=== PATIENT | female | born 1960 | race Caucasian/White ===

== ENCOUNTER → 2021-04-05 10:43 | Outpatient (CLI) | payer OTHER, SELFPAY ==
--- NOTE | ~2021-04-05 | MM_ITS ---
EXAMINATION: MM screening christiana BI w luis HISTORY: Screening TECHNIQUE: Craniocaudal and mediolateral oblique 3-D tomosynthesis images were obtained and synthetic 2-D images were generated. CAD analysis was submitted and interpreted. COMPARISON: Comparison to multiple prior studies sequentially, with oldest reviewed study dated 12/22. BREAST PARENCHYMAL COMPOSITION: The breasts are almost entirely fatty. FINDINGS: There is no evidence of suspicious mass, calcification, or architectural distortion to sugg est malignancy in either breast. There has been no suspicious interval change. IMPRESSION: 1. No mammographic evidence of malignancy. 2. Recommend routine screening mammography in one year. BI-RADS Category 1: Negative Reviewed, dictated and finalized at location A. TION ANALYST
== END ==
PROVIDERS: PCP Internal Medicine; Visit Provider Nurse Practitioner Obstetrics & Gynecology
DX: Z12.31 Encounter for screening mammogram for malignant neoplasm of breast (principal)
CPT/HCPCS: 77063; 77067

== ENCOUNTER → 2021-04-20 07:36 | Outpatient (CLI) | payer OTHER, SELFPAY ==
--- NOTE | ~2021-04-20 | US_ITS ---
EXAMINATION: US abdomen complete EXAM DATE: 04/20/2021 08:28 INDICATION: R10.9 - Unspecified abdominal pain . TECHNIQUE: Multiple grayscale and Doppler images of the complete abdomen were obtained (by a technolo gist who performed the scan) and subsequently reviewed. There is no prior study for comparison. FINDINGS: The abdominal aorta is normal in caliber. Visualized portion IVC is patent. The pancreatic head a nd body are normal in appearance. The pancreatic tail is not visualized. The liver has normal echogenicity and contour. There are no focal liver lesions identified. There is no evidence of intrahepatic biliary duct dilation. Portal venous flow was seen in the hepatopedal , normal direction and has normal Doppler waveform. Common bile duct measures 4 mm, which is normal. The gallbladder fossa is unremarkable. Right kidney: There is renal cortical thinning, normal contour and echogenicity. It measures 11.3 x 4.6 x 6.5 centimeters. There is cystic region superior pole with increased through transmission prob ably a cyst measuring up to 2.6 cm. There is no hydronephrosis. Left kidney: There is normal contour and echogenicity. It measures 11.2 x 4.5 x 4.8 centimeters. T here are no focal renal lesions identified. There is no hydronephrosis. The spleen measures 8.4 centimeters and is morphologically normal. IMPRESSION: 1. No acute abdominal findings. Reviewed, dictated and finalized at location A. CAL ASSISTANT FLOAT
== END ==
PROVIDERS: PCP Internal Medicine; Visit Provider Nurse Practitioner
DX: R10.9 Unspecified abdominal pain (principal)
CPT/HCPCS: 76700

== ENCOUNTER 2021-04-24 13:54 | Outpatient (CLI) | payer OTHER, SELFPAY ==
--- NOTE | ~2021-04-24 | CT_ITS ---
EXAMINATION: CT abdomen pelvis w con DATE: 04/24/2021 14:48 INDICATION: Unspecified abdominal pain TECHNIQUE: Computed tomography (CT) of the abdomen and pelvis was performed with 100 cc Omnipaque 350 intravenous contrast. Automated exposure control and iterative reconstruction technique were employe d. Exam dose: 581.72 mGy-cm total exam DLP. COMPARISON: 04/20/2021 complete abdominal ultrasound examination 11/23/2012 CT abdomen pelvis FINDINGS: Calcified right lower lobe pulmonary granuloma and multiple calcified splenic granulomas, c onsistent with old granulomatous disease. The lung bases are clear of infiltrate or consolidation. Normal heart size. No pericardial or pleural effusion. Status post cholecystectomy. No bile duct dilatation. There is some peripheral interrupted contrast enhancement of an approximately 13 mm hypoattenuating p osterior left hepatic lobe lateral segment lesion; the CT characteristics suggest hemangioma. No othe r hepatic space-occupying mass lesion is evident. Normal splenic size. No pancreatic mass lesion, thalia cification or ductal dilatation. Normal morphology of the adrenal glands. There is volume loss and prominent scarring of the right kidney and moderately prominent right hydron ephrosis. There is no right ureteral dilatation or right urinary tract obstruction or calculus. The left kidney is unremarkable. No left urinary tract calculus or hydroureteronephrosis. The urinary bladder appears normal. The uterus and adnexal areas are unremarkable. No bowel obstruction or intraperitoneal free air. Normal caliber of the abdominal aorta. No intraperitoneal or retroperitoneal or pelvic mass lesion or adenopathy or ascites. There is a small umbilical hernia containing fat and a loop of nonobstructed nonstrangulated small noemi wel. Old healed left inferior pubic ramus fracture. There are scattered occasional small osteosclerotic densities of the axial skeleton, some not present on 11/23/2012; consider radionuclide bone scan evaluate for any active process such as osteosclerotic metastases as clinically appropriate. IMPRESSION: Status post cholecystectomy Probable 13 mm left hepatic lobe hemangioma Chronic pyelonephritis of the right kidney Small umbilical hernia containing one nonobstructed nonstrangulated small bowel loop Scattered small osteosclerotic densities of the axial skeleton, some not present on 11/23/2012. Conside r radionuclide bone scan as clinically appropriate Reviewed, dictated and finalized at Location A. Reviewed, dictated and finalized at location B. CARRIER TECHNICIAN IMPRESSION: Status post cholecystectomy Probable 13 mm left hepatic lobe hemangioma Chronic pyelonephritis of the right kidney Small umbilical hernia containing one nonobstructed nonstrangulated small bowel loop Scattered small osteosclerotic densities of the axial skeleton, some not presen t on 11/23/2012. Consider radionuclide bone scan as clinically appropriate
[2021-04-24 14:43] LABS: Estimated Glomerular Filt Rate > 60
== END 2021-04-24 13:55 | disposition home or self-care (01) ==
PROVIDERS: PCP Internal Medicine; Visit Provider Nurse Practitioner
DX: R10.9 Unspecified abdominal pain (principal); Z90.49 Acquired absence of other specified parts of digestive tract; K42.9 Umbilical hernia without obstruction or gangrene
CPT/HCPCS: 74177; Q9967

== ENCOUNTER 2021-05-21 07:08 | Outpatient (CLI) | payer OTHER, SELFPAY ==
--- NOTE | ~2021-05-21 | NM_ITS ---
EXAMINATION: NM bone scan whole body DATE: 05/21/2021 10:50 INDICATION: Osteopetrosis. Sclerotic lesions of bone. TECHNIQUE: 26.8 mCi Tc-99m HDP was administered intravenously. Delayed whole-body scintigrams were o btained. COMPARISON: CT abdomen and pelvis 04/24/2021, 11/23/2012 FINDINGS: There is joint-centered increased activity in the knees, acromioclavicular joints, sternocl avicular joints, and right foot without radiographic comparison, likely osteoarthritis. IMPRESSION: 1. No abnormal activity to correlate with the small sclerotic lesions seen in the pelvis by CT, likel y benign bone islands. Reviewed, dictated and finalized at location A. ESSIONAL VOLLEYBALL PLAYER IMPRESSION: 1. No abnormal activity to correlate with the small sclerotic lesions seen in t he pelvis by CT, likely benign bone islands.
== END 2021-05-21 07:09 | disposition home or self-care (01) ==
LOC: ANHIMG 07:11
PROVIDERS: PCP Internal Medicine; Visit Provider Nurse Practitioner
DX: Q78.2 Osteopetrosis (principal)
CPT/HCPCS: 78306; A9561

== ENCOUNTER 2021-05-23 12:25 | Outpatient (CLI) | payer OTHER, SELFPAY ==
--- NOTE | ~2021-05-23 | NM_ITS ---
EXAMINATION: ARIC lang renal scan DATE: 05/23/2021 14:30 INDICATION: Right hydronephrosis. TECHNIQUE: 8.1 mCi Tc-99m MAG3 was administered IV. 40 mg furosemide was administered IV immediately afterward. The patient was scanned in the supine position. A posterior abdominal radionuclide angiog danny was obtained. A subsequent time course of static images of the kidneys, ureters, and bladder was obtained. COMPARISON: CT abdomen and pelvis 04/24/2021, ultrasound 04/20/21 FINDINGS: The posterior abdominal radionuclide angiogram and sequential static images show normal siz e, position, and morphology of the kidneys. Peak renal parenchymal uptake was 5 min in right kidney a nd 2 min in left kidney (normal peak 3-5 minutes). The relative early renal uptake was 45% on the ri ght and 55% on the left (<40% is abnormal). No abnormalities of the ureters or bladder are seen. T1/2 for clearance of activity from the right kidney and proximal collecting system was 21 minutes. T1/2 for clearance of activity from the left kidney and proximal collecting system was 4 minutes. IMPRESSION: 1. Delayed contrast clearance from right kidney, likely secondary to asymmetric mild right kidney at [facility] seen on other imaging. Right kidney function is 45% of total renal function. Reviewed, dictated and finalized at location A. CO WORKER IMPRESSION: 1. Delayed contrast clearance from right kidney, likely secondary to asymmetri c mild right kidney atrophy seen on other imaging. Right kidney function is 45% of total renal function.
== END 2021-05-23 12:26 | disposition home or self-care (01) ==
PROVIDERS: PCP Internal Medicine; Visit Provider Nurse Practitioner Family
DX: N13.30 Unspecified hydronephrosis (principal)
CPT/HCPCS: 78708; A9562

== ENCOUNTER → 2022-05-13 13:54 | Outpatient (CLI) | payer OTHER, SELFPAY ==
--- NOTE | ~2022-05-13 | MM_ITS ---
EXAMINATION: MM screening christiana BI w luis HISTORY: Screening mammogram TECHNIQUE: Craniocaudal and mediolateral oblique 3-D tomosynthesis images were obtained and synthetic 2-D images were generated. CAD analysis was submitted and interpreted. COMPARISON: 04/05/2021, 07/20/2018, bilateral screening mammogram examinations BREAST PARENCHYMAL COMPOSITION: The breasts are almost entirely fatty. FINDINGS: There is no evidence of suspicious mass, calcification, or architectural distortion to sugg est malignancy in either breast. There has been no suspicious interval change. IMPRESSION: 1. No mammographic evidence of malignancy. 2. Recommend routine screening mammography in one year. BI-RADS Category 1: Negative Reviewed, dictated and finalized at location A. SCAN SPECIAL PROCEDURES TECHNOLOGIST
== END ==
PROVIDERS: PCP Internal Medicine; Visit Provider Nurse Practitioner Obstetrics & Gynecology
DX: Z12.31 Encounter for screening mammogram for malignant neoplasm of breast (principal)
CPT/HCPCS: 77063; 77067

== ENCOUNTER 2022-06-20 12:46 | Emergency (ER) | payer OTHER, SELFPAY ==
--- NOTE | 2022-06-20 12:52 | ED.GENADULT ---
HPI - General Adult General Chief complaint: Urogenital-Female Stated complaint: UTI SYMPTOMS Source: patient and RN notes reviewed History of Present Illness HPI narrative: 61-year-old female presents to urgent care with complaints of burning with urination, urinary frequency, and right lower pelvic pain. Patient states her symptoms started last so she began drinking more water diagnosed UTI. Patient states symptoms have just worsened. Patient states she took a test [employer] indicating that she has UTI. Patient denies any back pain, flank pain, fevers, chills, vomiting, or any other complaints. Related Data Allergies Allergy/AdvReac Type Severity Reaction Status Date / Time amoxicillin Allergy Unknown SEVERE Verified 04/24/22 10:01 NAUSEA AND VOMITING Review of Systems Review of Systems: Pertinent positives and pertinent negatives per HPI. [facility] Past Medical History Medical History Chronic pyelonephritis Kidney cysts Osteosclerosis Surgical History Surgical History History of cholecystectomy Family History Family History Mother Family history of gallbladder disease Carcinoma of colon Hypertension Father Acute myocardial infarction Malignant neoplasm of prostate Grandparent Cancer Social History Social History (Updated 04/24/22 @ 10:06 by Sheridan Maciel CMA) Smoking status: Never smoker Alcohol intake: current Substance use: never Lack of Transportation: No Lack of Food: Never True Current Housing: I Have Housing Concerned About Future Housing: No Difficulty Paying Gas/Electric Bills: No Difficulty Paying for Meds: No Currently Unemployed: No Education: High School Diploma/GED Difficulty w/ Childcare or Family Care: No Living arrangements: with family Occupation/Education: retired Gender identity (if verbalized by the patient): Female Agree to blood products: Yes Comments At the time of my signature, I reviewed and agree with the nursing past medical, surgical, social, and family history. There is no relevant family history pertinent to the patient complaint. Exam Narrative: GENERAL: This is a well-nourished, well-developed patient, in no apparent distress. HEAD: normocephalic, atraumatic. EYES: PERRL. Sclera clear/white. Vision is grossly intact. EARS: External ears normal, auditory canals clear and without drainage, TMs normal without perforation. Hearing grossly intact. NOSE: External nose normal with no obvious nasal discharge, nares without redness, no rhinorrhea. THROAT: Mucous membranes moist, posterior pharynx clear. NECK: Neck supple, non-tender without lymphadenopathy, masses or thyromegaly. CARDIOVASCULAR: Regular rate and rhythm without murmurs, gallops, or rubs. RESPIRATORY: Clear to auscultation. Breath sounds equal bilaterally. No wheezes, rales, or rhonchi. GASTROINTESTINAL: Abdomen soft, non-tender, nondistended. Bowel sounds are active. No hepato-splenomegaly, or palpable masses. No guarding. SKIN: warm, intact with no suspicious lesions or rash, good texture and turgor. NEURO: awake, alert, and oriented to person, place and time. There were no obvious focal neurologic abnormalities. EXTREMITIES: No clubbing, cyanosis, or edema. No joint tenderness, effusion, or edema noted. BACK: Nontender without deformity or crepitance. No flank tenderness. Course Course Level of Care: Express Care Visit Vital Signs Vital signs: Vital Signs Temperature 98.3 F 06/20/22 13:01 Pulse Rate 72 06/20/22 13:01 Respiratory Rate 16 06/20/22 13:01 Blood Pressure 169/85 H 06/20/22 13:01 Pulse Oximetry 100 06/20/22 13:01 Oxygen Delivery Room Air 06/20/22 13:01 Temperature 98.3 F 06/20/22 13:01 Pulse Rate 72 06/20/22 13:01 Respiratory Rate 16
[2022-06-20 13:01] VITALS: BP 169/85; PULSE 72; RESP 16; TEMP 36.8; O2SAT 100
== END 2022-06-20 13:24 | disposition home or self-care (01) ==
PROVIDERS: Emergency Provider Nurse Practitioner Family; PCP Internal Medicine
DX: N39.0 Urinary tract infection, site not specified (principal); Q78.2 Osteopetrosis
CPT/HCPCS: 81003; 87077; 87086; 87088; 99213; G0463

== ENCOUNTER → 2023-05-27 11:10 | Outpatient (CLI) | payer OTHER, SELFPAY ==
--- NOTE | ~2023-05-27 | MM_ITS ---
EXAMINATION: MM screening christiana BI w luis HISTORY: Screening mammogram TECHNIQUE: Craniocaudal and mediolateral oblique 3-D tomosynthesis images were obtained and synthetic 2-D images were generated. CAD analysis was submitted and interpreted. COMPARISON: May 13, 2022, April 05, 2021, July 20, 2018 bilateral screening mammogram examina tions BREAST PARENCHYMAL COMPOSITION: The breasts are almost entirely fatty. FINDINGS: There is no evidence of suspicious mass, calcification, or architectural distortion to sugg est malignancy in either breast. There has been no suspicious interval change. IMPRESSION: 1. No mammographic evidence of malignancy. 2. Recommend routine screening mammography in one year. BI-RADS Category 1: Negative Reviewed, dictated and finalized at location A. CEMENTER
== END ==
PROVIDERS: PCP Internal Medicine; Visit Provider Internal Medicine
DX: Z12.31 Encounter for screening mammogram for malignant neoplasm of breast (principal)
CPT/HCPCS: 77063; 77067

== ENCOUNTER 2023-06-06 10:08 | Outpatient (CLI) | payer OTHER, SELFPAY ==
--- NOTE | ~2023-06-06 | XR_ITS ---
Right Shoulder Technique: AP and scapular Y views were obtained. Clinical History: Pain Findings: No fracture or dislocation is seen. Osseous alignment is anatomic. The glenohumeral and acr omioclavicular joint spaces are preserved. Soft tissues are unremarkable. Impression: Unremarkable right shoulder radiographs. Reviewed, dictated and finalized at [facility]. Impression: Unremarkable right shoulder radiographs.
== END 2023-06-06 10:09 | disposition home or self-care (01) ==
LOC: ANHIMG 10:10
PROVIDERS: PCP Internal Medicine; Visit Provider Nurse Practitioner
DX: M25.511 Pain in right shoulder (principal); G89.29 Other chronic pain
CPT/HCPCS: 73030

== ENCOUNTER 2023-10-15 08:11 | Outpatient (CLI) | payer MEDICARE, SELFPAY ==
--- NOTE | ~2023-10-15 | US_ITS ---
US abdomen limited 10/15/2023 08:27 Indication: Palpable left upper quadrant mass. Procedure: High-resolution Limited ultrasound of the left upper abdominal soft tissues Comparison: No prior studies for comparison. Findings: Normal heterogeneous soft tissues without discrete solid or cystic mass. Impression: 1: Normal soft tissue ultrasound. No discrete mass identified. Reviewed, dictated and finalized at location B. Impression: 1: Normal soft tissue ultrasound. No discrete mass identified.
== END 2023-10-15 08:12 ==
LOC: GOSHIMG 08:12
PROVIDERS: PCP Internal Medicine; Visit Provider Nurse Practitioner
DX: R19.02 Left upper quadrant abdominal swelling, mass and lump (principal)
CPT/HCPCS: 76705

== ENCOUNTER 2024-05-20 09:48 | Outpatient (CLI) | payer MEDICARE, SELFPAY ==
[2024-05-20 15:09] LABS: Basophils Absolute Auto 0.1 K/mm3 (0.0-0.1); Basophils Percent Auto 0.7 % (0.2-1.2); Eosinophils Absolute Auto 0.2 K/mm3 (0-0.3); Hematocrit 48.4 % (37.0-47.0); Hemoglobin 15.4 g/dL (12.0-15.0); Immature Granulocyte Absolute 0.03 K/mm3 (0.00-0.031); Immature Granulocyte Percent A 0.4 % (0-0.5); Lymphocytes Absolute Auto 1.82 K/mm3 (0.9-3.2); Lymphocytes Percent Auto 24.4 % (18.3-44.2); Mean Corpuscular HGB Conc 31.8 g/dl (32-36); Mean Corpuscular Hemoglobin 29.6 pg (26-34); Mean Corpuscular Volume 93.1 fl (80-100); Monocytes Absolute Auto 0.4 K/mm3 (0.1-0.6); Monocytes Percent Auto 5.9 % (2.6-8.5); Neutrophils Absolute Auto 4.9 K/mm3 (1.3-6.7); Neutrophils Percent Auto 65.6 % (45.5-73.1); Platelet Count Result 281 k/mm3 (150-375); Red Cell Distribution Width 13.1 % (11.5-14.5); White Blood Count 7.5 K/mm3 (4.5-10.0)
[2024-05-20 16:19] LABS: Alanine Aminotransferase 21 U/L (6-35); Albumin Level 4.4 g/dL (3.5-5.1); Alkaline Phosphatase 88 U/L (38-126); Anion Gap 8 mmol/L (4-12); Aspartate Amino Transferase 52 U/L (14-36); Bilirubin,Total 0.9 mg/dL (0.2-1.3); Blood Urea Nitrogen 15 mg/dL (7-17); Calcium 9.3 mg/dL (8.4-10.2); Carbon Dioxide 30 mmol/L (22-30); Chloride 101 mmol/L (98-107); Cholesterol 197 mg/dL (0-200); Estimated Glomerular Filt Rate > 60; Glucose 109 mg/dL (65-110); HDL Direct 53 mg/dL; Potassium 4.4 mmol/L (3.4-5.0); Sodium 139 mmol/L (137-145); Triglycerides 150 mg/dL (<150)
[2024-05-20 16:30] LABS: LDL Cholesterol Direct 102 mg/dL
[2024-05-20 19:03] LABS: Vitamin D 25 Hydroxy 25.4 ng/mL
[2024-05-21 04:32] LABS: Hemoglobin A1C 5.7 % (<5.7)
== END 2024-05-20 09:49 | disposition home or self-care (01) ==
LOC: ANHGOSHLAB 09:50
PROVIDERS: PCP Internal Medicine; Visit Provider Nurse Practitioner
DX: E78.5 Hyperlipidemia, unspecified (principal); E55.9 Vitamin D deficiency, unspecified; R73.03 Prediabetes
CPT/HCPCS: 36415; 80053; 80061; 82306; 83036; 84443; 85025

== ENCOUNTER 2024-07-22 12:52 | Outpatient (CLI) | payer MEDICARE, SELFPAY ==
--- NOTE | ~2024-07-22 | MM_ITS ---
EXAMINATION: MM screening christiana BI w luis HISTORY: Screening TECHNIQUE: Craniocaudal and mediolateral oblique 3-D tomosynthesis images were obtained and synthetic 2-D images were generated. CAD analysis was submitted and interpreted. COMPARISON: Comparison to multiple prior studies sequentially, with oldest reviewed study dated 04/19. BREAST PARENCHYMAL COMPOSITION: Not Dense: The breasts are almost entirely fatty. FINDINGS: There is no evidence of suspicious mass, calcification, or architectural distortion to sugg est malignancy in either breast. There has been no suspicious interval change. IMPRESSION: 1. No mammographic evidence of malignancy. 2. Recommend routine screening mammography in one year. BI-RADS Category 1: Negative Reviewed, dictated and finalized at location A.
== END 2024-07-22 12:53 | disposition home or self-care (01) ==
LOC: MICIMG 12:54
PROVIDERS: PCP Internal Medicine; Visit Provider Nurse Practitioner
DX: Z12.31 Encounter for screening mammogram for malignant neoplasm of breast (principal)
CPT/HCPCS: 77063; 77067

== ENCOUNTER 2024-08-06 00:52 | Day surgery (SDC) | payer MEDICARE, SELFPAY ==
[2024-07-28 10:58] VITALS: BMI 33.1
--- OUTSIDE RECORDS SUMMARY | 2024-08-06 00:54 | XMS_ITS | Data Portability ---
Author Organization [facility] [place] Address [address] [address] Care Team Providers Care Emergency Room Nurse Name Role Phone MEEK WADE Primary Care Provider Assessment Encounter Date Assessment Date Assessment LastModified by Organization Details LastModified Time 01/30/2021 01/30/2021 Annual gynecological exam performed. Patient will come back in a year unless there are new symptoms. Not available 01/29/2021 17:30:50 02/28/2022 02/28/2022 Annual gynecological exam performed. Patient will come back in a year unless there are new symptoms. [email or web address] Not available 02/28/2022 10:32:59 04/02/2023 04/02/2023 Annual gynecological exam performed. Patient will come back in a year unless there are new symptoms. Not available 04/02/2023 11:59:52 Plan of Treatment Reminders Order Date Submit Date Provider Last Modified By Organization Details Last Modified Time Details Appointments None recorded. Lab None recorded. Referral None recorded. Procedures None recorded. Surgeries None recorded. Imaging MAMMO, screening, bilateral 2023 024 [email or web address] [facility], [address], [place], [address], 4 15:56:06 MAMMO, screening, bilateral 2021 022 MELITON [facility], [address], [place], [address], 3 17:48:32 DEXA, axial skeleton + vertebral fracture assessment 2020 021 [facility], [address], [facility] [address], [place], [address], 11:25:18 Medication Orders None recorded. Patient TargetsNo targets recorded. Patient InstructionsNo instructions recorded. Reason for Referral None Reported. 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 Atrop hic cat kaplan rn. Mane vela efrain d by Erica De La Garza ret, CT on 02/06 at 9:35 AM ----- ----- ----- ----- ----- ----- ----- ----- ----- ----- ----- ----- ----- ----- ----- ----- ----- ---- HPV RESUL TS: HPV mRNA E6/E7 : No HPV mRNA Detec cheri NOTE: This high risk HPV mRNA assay detec ts fourt een high- risk HPV types (16, 18, 31, 33, 35, 39, 45, 51, 52, 56, 58, 59, 66, 68) witho ut diffe renti ation . COMME NT: Note: This speci men was revie wed by a Cytot echno logis t and/o r Patho logis t (as indic ated in this repor t) after evalu ation using the Thinp rep Imagi ng Syste m. CLINI THALIA INFOR MATIO N: Menst rual Statu s: LMP (if appli cable ): Clini thalia Histo ry/Pr eviou s Pap: Type of Neopl meme (if appli cable ): Signi fican t Clini thalia Findi ngs: Other Histo ry: Hormo peter (if appli cable ): PAP EDUCA GARRET L NOTE: The Pap Test is a scree husdon test with an inher ent false negat jessee rate. Liqui d-bas e sampl ing may decre ase, but will not elimi heena, false negat jessee resul ts. A negat jessee resul t does not precl ude the prese nce and/o r devel opmen t of disea se, since the prese nce of abnor mal cells in the sampl e depen ds on the locat ion of the lesio n and sampl ing techn ique. Kamilah nued regul ar scree hudson is the best metho d of cance r preve ntion . If repor cheri cytol ogic findi ng do not corre late with physi thalia and/o r histo rical findi ngs, furth er inves tigat ion is recom sue d, as clini deedee warrefren nted. 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 Elect beyehuda vela efrain d by Radha Salomon ed, CT on 2023 at 9:17 PM ----- ----- ----- ----- ----- ----- ----- ----- ----- ----- ----- ----- ----- ----- ----- ----- ----- ---- HPV RESUL TS: HPV mRNA E6/E7 : No HPV mRNA Detec cheri NOTE: This high risk HPV mRNA assay detec ts fourt een high- risk HPV types (16, 18, 31, 33, 35, 39, 45, 51, 52, 56, 58, 59, 66, 68) witho ut diffe renti ation . COMME NT: This speci men was revie wed by a Cytot echno logis t and/o r Patho logis t (as indic ated in this repor t) after evalu ation using the Thinp rep Imagi ng Syste m. CLINI THALIA INFOR MATIO N: Menst rual Statu s: LMP (if appli cable ): Clini thalia Histo ry/Pr eviou s Pap: Type of Neopl meme (if appli cable ): Signi fican t Clini thalia Findi ngs: Other Histo ry: Hormo peter (if appli cable ): PAP EDUCA GARRET L NOTE: The Pap Test is a scree hudson test with an inher ent false negat jessee rate. Liqui d-bas ed sampl ing may decre ase, but will not elimi heena, false negat jessee resul ts. A negat jessee resul t does not precl ude the prese nce and/o r devel opmen t of disea se, since the prese nce of abnor mal cells in the sampl e depen ds on the locat ion of the lesio n and sampl ing techn ique. Kamil[place] nued regul ar scree hudson is the best metho d of cance r preve ntion . If repor cheri cytol ogic findi ng do not corre late with physi thalia and/o r histo rical findi ngs, furth er inves tigat ion is recom sue d, as clini deedee warra nted. Not Available [facility] (Lab) [address], [place], [address], 04/03/2023 22:21:26 04/05/19 22 04/05/2021 MAMMO , scree hudson, bilat eral No observ ation record ed. [facility] [address], [place], [address], 04/12/2021 15:55:52 05/13/19 23 05/13/2022 MAMMO , scree hudson, bilat eral No observ ation record ed. [address] [facility] [address], [place], [address], 04/02/2023 12:16:35 Result Notes None recorded. Problems Name Problem SNOMED Code Status Onset Date Resolution Date Notes Provider Name and Address Organization Details Recorded Time Cyst of ovary 94832156 Completed 201401/29/2021 Unspecifi ed ovarian cysts;Pra ctice ID: 0001 Radha dangelo [facility] 17:23:23 Postmeno pausal bleeding 86777607 Completed 201401/29/2021 Postmenop ausal bleeding; Practice ID: 0001 Radha dangelo [facility] 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 17:23:[address] Concept Completed 201601/29/2021 Encntr for general adult medical exam w/o abnormal findings; Practice ID: 0001 Radha Francis [facility] 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 17:23:36 Screenin g for malignan t neoplasm of rectum Completed 201601/29/2021 Encounter for screening for malignant neoplasm of rectum;Pr actice ID: 0001 Radha Francis [facility] 17:23:32 Obesity 920276235 Completed 201301/29/2021 Obesity;R ecorded Elsewhere : No Locati on: [facility] So urce: EHR Chron ic: N Practic e ID: 0001 Bill able Time: 01:30:00 PM Radha Francis [facility] 17:23:26 Speciali d medical examinat ion Completed 201101/29/2021 Gynecolog ical Examinati on;Record ed Elsewhere : No Locati on: [facility] So urce: EHR Chron ic: N Practic e ID: 0001 Bill able Time: 10:45:00 AM Radha Francis [facility] 17:23:37 Screenin g for malignan t neoplasm of cervix Completed 201601/29/2021 Encounter for screening for malignant neoplasm of cervix;Re corded Elsewhere : No Locati on: [facility] So urce: EHR Chron ic: N Practic e ID: 0001 Bill able Time: 01:00:00 PM Radha Francis [facility] 17:23:29 Adult health examinat ion Completed 201301/29/2021 ROUTINE MEDICAL EXAM;Keyur rded Elsewhere : No Locati on: [facility] So urce: EHR Chron ic: N Practic e ID: 0001 Bill able Time: 01:30:00 PM Radha Francis [facility] 17:23:18 Body mass index 30+ - obesity 789200965 Completed 201701/29/2021 Body mass index (BMI) 32.0-32.9 , adult;Rec orded Elsewhere : No Locati on: [facility] So urce: EHR Chron ic: N Practic e ID: 0001 Bill able Time: 01:30:00 PM Radha Francis [facility] 17:23:19 Leukocyt osis [id number] Completed 201101/29/2021 LEUKOCYTO SIS NOS;Recor ded Elsewhere : No Locati on: [facility] So urce: EHR Chron ic: N Practic e ID: 0001 Bill able Time: 10:45:00 AM Radha Francis [facility] 17:23:24 Screenin g for malignan t neoplasm of colon Completed 201001/29/2021 Special screening for malignant neoplasms , colon;Pra ctice ID: 0001 Radha Francis [facility] 17:23:31 Problem Notes None recorded. Procedures Surgical History Date Name Laterality Status Provider Name and Address Organization Details Recorded Time 04/05/19 22 Date of Last Mammogram completed [facility] 02/27/2022 15:43:18 03/24/19 22 Date of Last Colonoscopy completed [facility] 02/28/2022 10:33:19 01/31/20 21 Date of Last Pap Smear completed [facility] 02/27/2022 15:42:44 03/24/19 21 Most Recent Bone Density completed [facility] 02/28/2022 10:33:30 03/24/19 15 Hysteroscopy completed [facility] 01/29/2021 17:27:43 Cryotherapy/Cryocau gisselle completed [facility] 01/29/2021 17:26:47 excision of cyst of ovary completed [facility] 01/29/2021 17:26:56 Cholecystectomy completed [facility] 04/02/2023 12:04:15 Imaging Results Imaging Date Name Status LastModified by Organiz ation Details LastModified Time 04/05/2021 MAMMO, screening, bilateral completed [facility] [address], [place], [address], 04/12/2021 15:55:52 05/13/2022 MAMMO, screening, bilateral active [address] [facility] [address], [place], [address], 04/02/2023 12:16:35 Procedure Notes None recorded. Medical Equipment None Reported. Allergies Allergen ID Allergen Name Allergen Category Reaction Reaction Severity Criticality Documentation Date Start Date Code Code System Note Provider Name and Address Organization Details Recorded Time 9472 amoxicill in medicatio n Not available Not available Not available 03/10/2020 723 RxNorm Comme nt: Locat [facility]: [facility]; Not Available [facility] 0 14:14:21 Medications Name Sig Start Date Stop Date Status Note LastModified by Organization Details LastModified Time amoxicill in 500 mg capsule take 1 capsule (500MG) by oral route 3 times every day for 10 days 01/20 completed Prescrib ed Elsewher e: No Locat ion: [facility] odify By: cmedical Encount er DateTime : 01/12/20 13 11:33:45 AM Not Available Not Available Not Available Ceftin 500 mg tablet take 1 tablet (500MG) by oral route every 12 hours 01/23 completed Prescrib ed Elsewher e: No Locat ion: [facility] odify By: cmedical Encount er DateTime : 01/15/20 13 02:20:58 PM Not Available Not Available Not Available Pyridium 200 mg tablet take 1 tablet by oral route 3 times every day after meals 02/01 completed Prescrib ed Elsewher e: No Locat ion: [facility] odify By: amzeynep Coleman ncounter DateTime : 01/11/20 15 12:00:00 PM Not Available Not Available Not Available Cipro 500 mg tablet take 1 tablet by oral route every 12 hours 02/01 completed Prescrib ed Elsewher e: No Locat ion: [facility] odify By: amkcatrina Coleman ncounter DateTime : 01/11/20 15 12:00:00 PM Not Available Not Available Not Available cephalexi n 500 mg tablet TAKE 1 TABLET BY MOUTH TWICE DAILY 02/28 completed Not Available Not Available Not Available Vitamin D active Not Available Not Elisa ilable Not Available cholecalc iferol (vitamin D3) 1,250 mcg (50,000 unit) capsule TAKE 1 CAPSULE BY MOUTH EVERY WEEK 02/28 completed Not Available Not Available Not Available Vitals Date Recorded Body height Body mass index (BMI) Body weight Provider Name and Address Organization Details Last Updated DateTime 01/30/2021 160.02 cm 33.8 kg/m2 91780.14 glendy Francis [facility] 01/30/2021 10:08:00 Date Recorded Systolic blood pressure Diastolic blood pressure Provider Name and Address Organization Details Last Updated DateTime 01/30/2021 132 mm[Hg] 83 mm[Hg] Kimberley Rodriguez, [facility]- [address], [place], [address], [facility] 01/30/2021 10:37:19 Date Recorded Body height Body mass index (BMI) Body weight Systolic blood pressure Diastolic blood pressure Provider Name and Address Organization Details Last Updated DateTime 02/28/2022 160.02 cm 33.1 kg/m2 72859.77 g 120 mm[Hg] 82 mm[Hg] Gloria Grimes [facility] 10:33:09 Date Recorded Body weight Systolic blood pressure Diastolic blood pressure Provider Name and Address Organization Details Last Updated DateTime 04/02/2023 70276.96 g 125 mm[Hg] 85 mm[Hg] Radha Otto [facility] 04/02/2023 12:01:45 Social History Question Answer Notes LastModified by Organizat ion Details LastModified Time Tobacco Smoking Status Never [facility]oker [facility] 04/02/2023 11:54:54 Do You Have An Advance Directive? No Information n ot available 01/30/2021 Are You Blind Or Do You Have Difficulty Seeing? No Information n ot available 01/29/2021 What Is Your Level Of Caffeine Consumption? Heavy Information not available 01/30/2021 How Much Tobacco Do You Chew? None Information not available 01/30/2021 In The 14 Days Before Symptom Onset, Have You Had Close Contact With A Laboratory-confirm ed COVID-19 While That Case Was Ill? No Information n ot available 01/30/2021 In The 14 Days Before Symptom Onset, Have You Had Close Contact With A Person Who Is Under Investigation For COVID-19 While That Person Was Ill? No Information not available 01/30/2021 Have You Been To An Area Known To Be High Risk For COVID-19? No Information not available 01/30/2021 Are You Deaf Or Do You Have Serious Difficulty Hearing? No Information not available 01/29/2021 What Type Of Diet Are You Following? REGULAR Information n ot available 01/29/2021 What Is The Highest Grade Or Level Of School You Have Completed Or The Highest Degree You Have Received? [id number] Information not available 01/30/2021 Are There Any Guns Present In Your Home? No Information not available 01/30/2021 Do You Use Protection During Sex? No Information not available 01/30/2021 Do You Use Your Seat Belt Or Car Seat Routinely? Yes Information not available 01/29/2021 Do You Have Smoke And Carbon Monoxide Detectors In Your Home? Yes Information not available 01/29/2021 How Much Tobacco Do You Smoke? No Information not available 01/30/2021 Do You Use Sunscreen Routinely? Yes Information not available 01/29/2021 Have You Used IV Drugs? No Information not available 01/30/2021 Do You Have Difficulty Walking Or Climbing Stairs? No Information not available 04/02/2023 Sex: Unknown Functional Status Question Answer Note LastModified by Organizat ion Details LastModified Time Do you use any illicit or recreational drugs? No Information not available 01/29/2021 What is your level of alcohol consumption? None Information not available 01/30/2021 Are you able to walk? YESWOREST Information not available 01/29/2021 Are you able to care for yourself? Yes Information n ot available 04/02/2023 What is your occupation? Retired Information not available 01/30/2021 Do you have difficulty dressing or bathing? No Information not available 04/02/2023 What is your exercise level? Occasional Information not available 01/29/2021 Mental Status Question Answer Note LastModified by Organization D etails LastModified Time Do you feel stressed (tense, restless, nervous, or anxious, or unable to sleep at night)? [id number] Information not available 01/30/2021 Family History Relationship Description Onset Age of this Age Resolved Age Notes LastModified by Organization Details LastModified Time Father Hypertensive disorder Not available 2020 17:23:58 Maternal Grandmother Malignant tumor of colon Not available 2020 17:24:11 Mother Malignant tumor of colon Not available 2020 17:24:19 Mother Hypertensive disorder Not available 2020 17:24:24 Paternal Grandmother Malignant neoplasm of uterus Not available 2020 17:24:50 Paternal Grandmother Diabetes mellitus Not available 2020 17:25:01 Paternal Grandmother Cerebrovascu lar accident Not available 10/2020 17:25:10 Medical History Condition Response Allergies (Food, seasonal, environmental ) N Other N Drug/Latex Allergies/Reactions N Blood Transfusion N Breast Cancer N Dermatologic Disorders N Lung Disease N Defects or Inherited Disease N Breast Problem N Gestational Diabetes N Hematologic disorders N Anesthesia Complications N History of STI N Deep Vein Thrombosis N Polycystic ovary syndrome N Anxiety Disorder N Autoimmune disease N Arthritis N Polyps N Infertility N Acid Reflux (GERD) N History of abnormal pap N Cancer N Varicosities N Stroke N Neurologic/Epilepsy N Endometriosis N High Cholesterol N Fibromyalgia N Headaches N Kidney Disease N Heart Problems N Thyroid Problems N Kidney or Bladder Problems N GI Problems N Eating Disorder N Anemia N Art (IVF or FET) N Psychiatric Illness N Ovarian Cancer N Diabetes N Pulmonary (TB, Asthma) N Hepatitis/Liver Disease N No Past Medical History N Eczema N Urinary Tract Infection N Abuse/Domestic Violence N Asthma N Trauma/Violence N Depression/ depression N Heart Disease N Pre-Eclampsia N Hypertension N Osteoporosis N Thrombophilias N Gynecological History Statement/Question Response Abnormal Pap Y Date of Last Mammogram 04/05/2021 STIs/STDs N HPV Vaccine N Current Control Method Menopause Age at First Child 21 If Post Menopausal, Age at Menopause [age] Date of Last Colonoscopy 03/24/2021 Most Recent Bone Density 03/24/2020 Sexually Active? Y Age of first menstrual cycle 11 Date of Last Pap Smear 01/30/2021 Sexual Problems? N LMP Unknown Obstetrics History GPAL:G 3 P 0 0 0 3 Type Value Living 3 Total 3 Past Encounters Encounter ID Performer Location Encounter Start Date Encounter Closed Date Diagnosis/Indication Diagnosis SNOMED-CT Code Diagnosis ICD10 Code Diagnosis Note [id number] [facility] [address] [address] 01/30/2021 09:59:15 01/30/2021 11:11:07 Gynecologic examination 62484107 Z01.419 Take Calcium with Vitamin D 12-1500mg daily. Do monthly self breast exams. It is advised to get annual flu shot in the fall and she could obtain at [facility] care clinic. If you haven't received the Tdap vaccine in the last 10 years you should obtain one as well. Have mammogram yearly, bone density every 2-3 years and colonoscop y every 5-10 years depending on findings and history. Engage in daily exercise of low impact aerobic exercise 45-60 minutes 4-5 times weekly. Avoid tobacco and illicit drugs as well as using moderation with alcohol intake less than 1-2 8 oz beverages daily. This lifestyle behavior pattern will lead to less health conditions and longer life span. If BMI greater than 25 weight watchers or dietary consult advised. Questions have been answered. Patient appears to understand instructio ns, but if you have any further questions call or respond to this email Pap/hpv sentConsid er q3-5yr pap/hpv per asccp unless otherwise indicateMa mmo orderedCol on-discuss edGenetic screen discussedD exa-ordere d Postmenopa usal osteopenia [id number] M85.80 Family his tory of cancer of colon 994806378 Z80.0 Discussed genetic screenDisc ussed colonoscop yHas never had oneScared of resultsNot having issuesMom & MGM Hx of colon cancerWe reviewed risks/bene fits of this procedure & her health.She will consider referral for a screening colonoscop y [id number] Kimberley Rodriguez , [facility] [address] [address] 02/28/2022 10:26:16 02/28/2022 10:54:35 Gynecologic examination 79505192 Z01.419 Z11.51 Take Calcium with Vitamin D 12-1500mg daily. Do monthly self breast exams. It is advised to get annual flu shot in the fall and she could obtain at [facility]. If you haven't received the Tdap vaccine in the last 10 years you should obtain one as well. Have mammogram yearly, bone density every 2-3 years and colonoscop y every 5-10 years depending on findings and history. Engage in daily exercise of low impact aerobic exercise 45-60 minutes 4-5 times weekly. Avoid tobacco and illicit drugs as well as using moderation with alcohol intake less than 1-2 8 oz beverages daily. This lifestyle behavior pattern will lead to less health conditions and longer life span. If BMI greater than 25 weight watchers or dietary consult advised. Questions have been answered. Patient appears to understand instructio ns, but if you have any further questions call or respond to this email Pap/hpv due 3Consid er q3-5yr pap/hpv per asccp unless otherwise indicateMa mmo orderedCol on-PCP 2021Geneti c screen discussedD exa-PCPSTD declined Screening mammography 24 614815 Z12.31 [id number] Kimberley Rodriguez , [facility] [address] [address] 04/02/2023 11:52:33 04/02/2023 12:19:26 Gynecologic examination 24746330 Z01.419 Z11.51 Take Calcium with Vitamin D 12-1500mg daily. Do monthly self breast exams. It is advised to get annual flu shot in the fall and she could obtain at [facility] or [facility] care clinic. If you haven't received the Tdap vaccine in the last 10 years you should obtain one as well. Have mammogram yearly, bone density every 2-3 years and colonoscop y every 5-10 years depending on findings and history. Engage in daily exercise of low impact aerobic exercise 45-60 minutes 4-5 times weekly. Avoid tobacco and illicit drugs as well as using moderation with alcohol intake less than 1-2 8 oz beverages daily. This lifestyle behavior pattern will lead to less health conditions and longer life span. If BMI greater than 25 weight watchers or dietary consult advised. Questions have been answered. Patient appears to understand instructio ns, but if you have any further questions call or respond to this email Pap/hpv sent USPSTF recommends against screening for cervical cancer in women older than 65yo, those who've had a hysterecto my for non-cancer indication s, & who have had adequate prior screening & are not otherwise at high risk for cervical cancer. Mammo orderedCol on-PCP 2021 wnlGenetic screen discussedD exa-PCPSTD declined Screening mammography 24 [id number] Z12.31 Health Concerns Section Related Observation LastModified by Organization Miroslavaai ls LastModified Time None Recorded Concern Status LastModified by Organization Details LastModified Time None Recorded Advance Directives Directive N: Payers Encounter Date Sequence Insurance Name Policy Number Policy Woods Covered Member ID Woods Member ID Guarantor Name 01/30/2021 1 [facility] [id number] Anastasia Hoover [id number] Anastasia Bneoit Hoover 02/28/2022 1 [facility] [id number] Anastasia Benoit Kiko [id number] Anastasia Benoit Kiko 04/02/2023 1 [facility] [id number] Anastasia Benoit Kiko [id number] Anastasia Benoit Hoover Notes Date Note Type Note Provider Name and Address Organization Details Recorded Time 01/30/2021 text/html Annual [employer]ender Post-MenopausalRe ported bypatient.[place] Symptoms:no menopausal symptoms; normal vaginal lubrication Vaginal Bleeding:history of menopause having occurred; no history of post menopausal bleeding Urinary Symptoms:no hematuria; no incontinence; no nocturia; no urinary frequency Vulva:no genital lesion; no vulvar atrophy Vagina:normal vaginal discharge; no vaginal atrophy Breast:no breast lump; no nipple discharge; no breast pain Sexual Complaints:no sexual complaints Psychological Symptoms:no depression; no anxiety Preventive Measures:encourag e regular mammograms starting age 40; encourage self breast examination; encourage regular exercise; encourage no tobacco use; needs to schedule mammogram; needs to schedule colonoscopy; needs to schedule bone density Kimberley Rodriguez, [facility]- [address], [place], [address], [facility] 01/30/2021 10:45:57 02/28/2022 text/html Annual [employer] Post-MenopausalRe ported bypatient.[place] Symptoms:no menopausal symptoms; normal vaginal lubrication Vaginal Bleeding:history of menopause having occurred; no history of post menopausal bleeding Urinary Symptoms:no hematuria; no incontinence; no nocturia; no urinary frequency Vulva:no genital lesion; no vulvar atrophy Vagina:normal vaginal discharge; no vaginal atrophy Breast:no breast lump; no nipple discharge; no breast pain Sexual Complaints:no sexual complaints Psychological Symptoms:no depression; no anxiety Preventive Measures:encourag e regular mammograms starting age 40; encourage self breast examination; encourage regular exercise; encourage no tobacco use; needs to schedule mammogram; history of recent colonoscopy Kimberley Rodriguez [facility] [address], [place], [address], [facility] 02/28/2022 10:45:44 04/02/2023 text/html Annual [employer] Blender Post-MenopausalRe ported bypatientTavoMenopakasey israel Symptoms:no menopausal symptoms; normal vaginal lubrication Vaginal Bleeding:history of menopause having occurred; no history of post menopausal bleeding Urinary Symptoms:no hematuria; no incontinence; no nocturia; no urinary frequency Vulva:no genital lesion; no vulvar atrophy Vagina:normal vaginal discharge; no vaginal atrophy Breast:no breast lump; no nipple discharge; no breast pain Sexual Complaints:no sexual complaints Psychological Symptoms:no depression; no anxiety Preventive Measures:encourag e regular mammograms starting age 40; encourage self breast examination; encourage regular exercise; encourage no tobacco use; needs to schedule mammogram; history of recent colonoscopy Kimberley Rodriguez [facility] [address], [place], [address], [facility] 04/02/2023 12:18:01 OBGyn Episode Ob Episode Information Episode Created Date Number of Fetuses Patient Bloodtype Patient rh Status Prepregnancy Weight lbs Domestic Partner Domestic Partner Phone Father Name Rn Labor And Delivery Status 01/30/20 21 1 CLOSED Fetus Data First Name Last Name Admitted to NICU Weight (g) Sex Living Outcome Pediatric Complications Fetus ID Race Codes Race Delivery Type [id number] Vaginal Delivery Terry Calculation Initial Terry Date Initial Exam Date Initial Exam Provider Initial Ultrasound Date Last Menstrual Period Date Ultra Sound Weeks Gestation 0 Eighteen To Twenty Week Terry Update Ultra Sound Date Fundal Height At Umbil Quickening Date Ultra Sound Latest Weeks Gestation Final Terry Confirmed By Final Terry Confirmed Date Final Terry Date Ultra Sound Latest Days Gestation 0 0 Menstrual History Last Menstrual Date [id number]|2024-08-06 08:56:00|2024-08-06 08:56:00|P.PNAN_ITS|WAGNERF|Health Information Management|[id number]|"Anes - Initial Pre Proc Eval Procedure: Operation Date: 08/06/24 09:30 Proposed Procedures p Colonoscopy - Anil Phan MD Date/Time: 08/06/24 08:56 Surgeon: Anil Phan MD Pre Op Diagnosis: screening malignant neoplasm of colon Patient Data Age: 64 Gender: F Height: 1.63 m Weight: 87.7 kg Last Vital Signs Temp 36.4 C L 08/06/24 08:29 Pulse 92 08/06/24 08:29 Resp 16 08/06/24 08:29 BP 142/81 H 08/06/24 08:29 Pulse Ox 99 08/06/24 08:29 O2 Del Method Room Air 08/06/24 08:29 Allergies Allergy/AdvReac Type Severity Reaction Status Date / Time amoxicillin Allergy Unknown SEVERE Verified 08/06/24 08:27 NAUSEA AND VOMITING Home Medications Medication Instructions Recorded Confirmed Type cholecalciferol (vitamin D3) 1,250 1,250 mcg PO WEEKLY #8 caps 05/21/24 08/06/24 Rx mcg (50,000 unit) capsule Patient hx anesthesia problems: none Family hx anesthesia problems: none Results Review: All pre-operative results and documents have been reviewed as part of the pre- operative evaluation. [facility] Past Medical History Medical History Chronic pyelonephritis Osteosclerosis Kidney cysts Surgical History Surgical History History of cholecystectomy Family History Family History Mother Family history of gallbladder disease Carcinoma of colon Hypertension Father Acute myocardial infarction Malignant neoplasm of prostate Grandparent Cancer Social History Social History Smoking status: Never smoker Alcohol intake: current Substance use: never Lack of Transportation: No Lack of Food: Never True Current Housing: I Have Housing Concerned About Future Housing: No Difficulty Paying Gas/Electric Bills: No Difficulty Paying for Meds: No Currently Unemployed: No Education: High School Diploma/GED Difficulty w/ Childcare or Family Care: No Living arrangements: with family Occupation/Education: retired Gender identity (if verbalized by the patient): Female Agree to blood products: Yes Anes - Eval Final PreProcedure Day of Procedure 08/06/24 08:56 Patient weight: obese Heart: regular rate and rhythm Lungs: clear to auscultation Airway: Mallampati scale class II Neurological: alert and oriented Last oral intake: >/= 8 hours ASA classification: II Emergent: no Anesthetic plan: proceed Anesthesia type and monitoring: general GIVS and standard monitoring Results Review: All pre-operative results and documents have been reviewed as part of the pre- operative evaluation. Informed Consent: The patient's anesthetic plan and its attendant risks and benefits were discussed with the patient/family/POA. Questions were solicited and answers provided to the satisfaction of the patient/family/POA. "
--- OUTSIDE RECORDS SUMMARY | 2024-08-06 00:54 | XMS_ITS | Clinical Summary ---
Author Organization [facility] Address [address] [address] Care Team Providers Care Global Account Director Name Role Phone Sydnee Chavez MD Primary Care Provider [phone] Source Comments [facility],non-owned Affiliates and Associated Physician Practices is amultiple site organization consisting of ambulatory clinics and hospital sitesin [place], [place], [place] and [place]. This disclosure is being madepursuant to the Care Everywhere program and may not contain all information available regarding this patient. Last updated 17.[facility] Allergies Active Allergy Reactions Criticality Noted Date Comments Amoxicillin Vomiting 05/01/2018 Medications * Be aware that medications may not be up to date on this document. Alwaysverify current medications with the patient. No known medications Social History Tobacco Use Types Packs/Day Years Used Date Smoking Tobacco: Never Smokeless Tobacco: Never Comments No Sex and Gender Information Value Date Recorded Sex Assigned at Not on file Legal Sex Female 9:01 AM [employer] Gender Identity Not on file Sexual Orientation Not on file Last Filed Vital Signs Vital Sign Reading Time Taken Comments Blood Pressure 126/82 05/01/2018 2:07 PM [employer] Pulse 84 05/01/2018 2:07 PM [employer] Temperature 36.7 C (98.1 F) 05/01/2018 2:07 PM [employer] Respiratory Rate 15 05/01/2018 2:07 PM [employer]ER Oxygen Saturation 99% 05/01/2018 2:07 PM [employer] Inhaled Oxygen Concentration - - Weight 86.2 kg (190 lb) 05/01/2018 2:07 PM [employer] Height 162.6 cm (5' 4 ) 05/01/2018 2:07 PM [employer] Body Mass Index 32.61 05/01/2018 2:07 PM [employer] Plan of Treatment Health Maintenance Due Date Last Done Comments BONE DENSITY TESTING 1960 COLOGUARD (AGES 45-75) - COL ON CA SCREENING 1958 COLON MONITORING 1958 COLONOSCOPY - COLON CA SCREENING 1958 CT COLONOGRAPHY - COLON CA SCREENING 1958 Colorectal Cancer Screening 1958 FIT - COLON CA SCREENING 1958 FLEX SIG - COLON CA SCREENING 1958 LIPID TESTING 1958 MAMMOGRAM 1958 HEPATITIS C SCREENING 06/26/1976 DTAP/TDAP/TD VACCINES (1 - Tdap) 1977 PNEUMOCOCCAL VACCINE 50+ (1 of 1 - PCV) 2008 ZOSTER VACCINE (1 of 2) 2008 SCREENING FOR DIABETES 05/01/2018 COVID-19 VACCINE ( - 2023-2 5 season) 2023 DEPRESSION SCREENING 03/24/2024 INFLUENZA VACCINE (Season Ended) 2024 Respiratory Syncytial Virus (RSV) Vaccine Pt: or over 60 yrs (1 - 1-dose 75+ series) 2033 HEPATITIS B VACCINE Aged Out No longe r eligible based on patient's age to complete this topic HIB VACCINE Aged Out No longer eligi ble based on patient's age to complete this topic HPV VACCINE Aged Out No longer eligi ble based on patient's age to complete this topic MENINGOCOCCAL (Group B) VACC INE SHARED DECISION-MAKING Aged Out No longer eligibl e based on patient's age to complete this topic MENINGOCOCCAL GROUPS A/C/Y/W VACCINE Aged Out No longer eligible b ased on patient's age to complete this topic Insurance [facility] Care Teams Global Account Director Relationship Specialty Start Date End Date Sydnee Chavez MD PCP - General Family Medicine 05/01/18
[2024-08-06 08:29] VITALS: BP 142/81; PULSE 92; RESP 16; TEMP 36.4; O2SAT 99; BMI 33.2
[2024-08-06] MEDS: LACTATED RINGERS 1,000 ML 150 ML IV CONT (08:38)
--- NOTE | 2024-08-06 08:56 | WPDANESEPPF ---
Anes - Initial Pre Proc Eval Procedure: Operation Date: 08/06/24 09:30 Proposed Procedures p Colonoscopy - Anil Phan MD Date/Time: 08/06/24 08:56 Surgeon: Anil Phan MD Pre Op Diagnosis: screening malignant neoplasm of colon Patient Data Age: 64 Gender: F Height: 1.63 m Weight: 87.7 kg Last Vital Signs Temp 36.4 C L 08/06/24 08:29 Pulse 92 08/06/24 08:29 Resp 16 08/06/24 08:29 BP 142/81 H 08/06/24 08:29 Pulse Ox 99 08/06/24 08:29 O2 Del Method Room Air 08/06/24 08:29 Allergies Allergy/AdvReac Type Severity Reaction Status Date / Time amoxicillin Allergy Unknown SEVERE Verified 08/06/24 08:27 NAUSEA AND VOMITING Home Medications Medication Instructions Recorded Confirmed Type cholecalciferol (vitamin D3) 1,250 1,250 mcg PO WEEKLY #8 caps 05/21/24 08/06/24 Rx mcg (50,000 unit) capsule Patient hx anesthesia problems: none Family hx anesthesia problems: none Results Review: All pre-operative results and documents have been reviewed as part of the pre-operative evaluation. [facility] Past Medical History Medical History Chronic pyelonephritis Osteosclerosis Kidney cysts Surgical History Surgical History History of cholecystectomy Family History Family History Mother Family history of gallbladder disease Carcinoma of colon Hypertension Father Acute myocardial infarction Malignant neoplasm of prostate Grandparent Cancer Social History Social History Smoking status: Never smoker Alcohol intake: current Substance use: never Lack of Transportation: No Lack of Food: Never True Current Housing: I Have Housing Concerned About Future Housing: No Difficulty Paying Gas/Electric Bills: No Difficulty Paying for Meds: No Currently Unemployed: No Education: High School Diploma/GED Difficulty w/ Childcare or Family Care: No Living arrangements: with family Occupation/Education: retired Gender identity (if verbalized by the patient): Female Agree to blood products: Yes Anes - Eval Final PreProcedure Day of Procedure 08/06/24 08:56 Patient weight: obese Heart: regular rate and rhythm Lungs: clear to auscultation Airway: Mallampati scale class II Neurological: alert and oriented Last oral intake: >/= 8 hours ASA classification: II Emergent: no Anesthetic plan: proceed Anesthesia type and monitoring: general GIVS and standard monitoring Results Review: All pre-operative results and documents have been reviewed as part of the pre-operative evaluation. Informed Consent: The patient's anesthetic plan and its attendant risks and benefits were discussed with the patient/family/POA. Questions were solicited and answers provided to the satisfaction of the patient/family/POA.
--- NOTE | 2024-08-06 08:59 | PM.HPGS ---
History of Present Illness History of Present Illness Consent: Risks, benefits, and alternatives have been discussed and questions answered. Patient agrees to proceed with procedure. Chief complaint: screening malignant neoplasm of colon Narrative: Anastasai Hoover is a 64 year old female with last colonoscopy 3 years ago, she had polyp, also mother and grandmother with colon cancer Review of Systems Review of Systems: All systems reviewed & are unremarkable except as noted in HPI and below PMFSH Past Medical History Medical History (Updated 08/06/24 @ 09:00 by Anil Phan MD) Family history of colon cancer Chronic pyelonephritis Osteosclerosis Kidney cysts Surgical History Surgical History History of cholecystectomy Family History Family History Mother Family history of gallbladder disease Carcinoma of colon Hypertension Father Acute myocardial infarction Malignant neoplasm of prostate Grandparent Cancer Social History Social History Smoking status: Never smoker Alcohol intake: current Substance use: never Lack of Transportation: No Lack of Food: Never True Current Housing: I Have Housing Concerned About Future Housing: No Difficulty Paying Gas/Electric Bills: No Difficulty Paying for Meds: No Currently Unemployed: No Education: High School Diploma/GED Difficulty w/ Childcare or Family Care: No Living arrangements: with family Occupation/Education: retired Gender identity (if verbalized by the patient): Female Agree to blood products: Yes Meds Home Medications and Allergies Home Medications Medication Instructions Recorded Confirmed Type cholecalciferol (vitamin D3) 1,250 1,250 mcg PO WEEKLY #8 caps 05/21/24 08/06/24 Rx mcg (50,000 unit) capsule Allergies Allergy/AdvReac Type Severity Reaction Status Date / Time amoxicillin Allergy Unknown SEVERE Verified 08/06/24 08:27 NAUSEA AND VOMITING Vital Signs Vital Signs - 24 hr 08/06/24 08:29 Temperature 97.5 F L Pulse Rate 92 Respiratory Rate 16 Blood Pressure 142/81 H Pulse Oximetry 99 Oxygen Delivery Room Air Exam Const: General: comfortable and no acute distress HENMT: Face/Nose/Sinus: Normal nares present Eyes: General: appearance normal, both eyes and all related structures Neck: Neck: no JVD Resp: Auscultation: clear to auscultation bilaterally Cardio: Rate: regular rate Rhythm: regular rhythm GI: Inspection: non-distended GI Palp: Yes Soft to palpation Skin: General skin exam: normal color Neuro: General: gait normal Speech: normal speech Extrem: General: normal to inspection Psych: Mental Status: mental status grossly normal Assessment and Plan Assessment and plan (1) Family history of colon cancer: Code(s): Z80.0 - Family history of malignant neoplasm of digestive organs Status: Acute Assessment and Plan: colonoscopy
[2024-08-06 09:15] VITALS: BP 113/70; PULSE 79; RESP 16; O2SAT 99
[2024-08-06 09:25] VITALS: BP 140/78; PULSE 72; RESP 16; O2SAT 98
[2024-08-06 09:35] VITALS: BP 150/74; PULSE 73; RESP 16; O2SAT 99
== END 2024-08-06 09:48 | disposition home or self-care (01) ==
PROVIDERS: PCP Internal Medicine; Referring Provider Nurse Practitioner; Visit Provider Internal Medicine Gastroenterology
PROC: 0DJD8ZZ Inspection of Lower Intestinal Tract, Via Natural or Artificial Opening Endoscopic (ICD-10-PCS; CPT 45378; principal; 2024-08-06 09:30)
DX: Z12.11 Encounter for screening for malignant neoplasm of colon (principal); K64.8 Other hemorrhoids; N11.9 Chronic tubulo-interstitial nephritis, unspecified; Q78.2 Osteopetrosis; E66.9 Obesity, unspecified; Z68.33 Body mass index [BMI] 33.0-33.9, adult; Z90.49 Acquired absence of other specified parts of digestive tract; Z87.448 Personal history of other diseases of urinary system; Z86.0100 Personal history of colon polyps, unspecified; Z80.0 Family history of malignant neoplasm of digestive organs; Z80.42 Family history of malignant neoplasm of prostate; Z82.49 Family history of ischemic heart disease and other diseases of the circulatory system
CPT/HCPCS: G0105; J2704; J7120

== ENCOUNTER 2024-08-23 09:18 | Outpatient (CLI) | payer MEDICARE, SELFPAY ==
--- OUTSIDE RECORDS SUMMARY | 2024-08-23 09:36 | XMS_ITS | Data Portability ---
Author Organization [facility] [place] Address [address] [place] [address] Care Team Providers Care Baggage Smasher Name Role Phone MEEK WADE Primary Care Provider [phone] Assessment Encounter Date Assessment Date Assessment LastModified [...] Imaging MAMMO, screening, bilateral 2023 024 [email or web address] [facility], [address], [place], [address], 4 15:56:06 MAMMO, screening, bilateral 2021 022 MELITON [facility], [address], [place], [address], 3 17:48:32 DEXA, axial skeleton + vertebral fracture assessment 2020 021 [facility], [address], [address] [address], [place], [address], 11:25:18 Medication Orders None recorded. Patient TargetsNo [...] kings: Rian Webster Colle cted: 01/30 1408 DOUGHMAKER Order ing Locat ion: [place] Path[facility] [...] or Mica reddy (NIL) . Atrop hic cell rosaura mccarty. Elect himanshu vela efrain d by Erica De La [...] as clini deedee warra nted. Not Available [facility] (Lab) [address], [place], [address], 02/06/2021 10:39:07 04/02/19 24 04/02/2023 IMAGE GUIDE D PAP AND HPV REGAR DLESS image guided Pap, HPV regardless of Pap result SEE RESULT S BELOW CASE REPOR T: Cytol ogy Gynec ologi thalia Repor t Case: [id number] Autho ame g Provi kings: Rian Webster Colle cted: 04/02 1445 DOUGHMAKER Order ing Locat ion: [place] Patho logaristides Recei lisa: 04/03 0610 First Scree n: Radha Salomon ed, CT Speci men: Scree hudson Pap - Image d, Cervi x STATE MENT OF ADEQU ACY: Satis facto ry for evalu ation Trans forma tion zone compo nent prese nt FINAL DIAGN OSIS: Negat jessee for Intra epith elial Lesio n or Mica reddy (NIL) . Elect [...] as clini deedee warra nted. Not Available [facility] (Lab) [address], [place], [address], 04/03/2023 22:21:26 04/05/19 22 04/05/2021 MAMMO , scree hudson, bilat eral No observ ation record ed[facility] [address], [place], [address], 04/12/2021 15:55:52 05/13/19 23 05/13/2022 MAMMO , scree hudson, bilat eral No observ ation record ed. [email or web address] [facility] [address], [place], [address], 04/02/2023 12:16:35 Result Notes None recorded. Problems Name Problem SNOMED Code Status Onset Date Resolution Date Notes Provider Name and Address Organization Details Recorded Time Cyst of ovary 84685899 Completed 201401/29/2021 Unspecifi ed ovarian cysts;Pra ctice ID: 0001 Radha dangelo [facility] [place] 17:23:23 Postmeno pausal bleeding 21818629 Completed 201401/29/2021 Postmenop ausal bleeding; Practice ID: 0001 Radha dangelo [facility] [place] 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 17:23:[address] Concept Completed 201601/29/2021 Encntr for general adult medical exam w/o abnormal findings; Practice ID: 0001 Radha Francis [facility] [place] 17:23:[address] Concept Completed 201601/29/2021 Encntr for commercial intern exam (general) (routine) w/o abn findings; Practice ID: 0001 Radha dangelo [facility] [place] 17:23:36 Screenin g for malignan t neoplasm of rectum Completed 201601/29/2021 Encounter for screening for malignant neoplasm of rectum;Pr actice ID: 0001 [facility] 17:23:32 Obesity 822540095 Completed 201301/29/2021 Obesity;R ecorded Elsewhere : No Locati on: [facility] So urce: EHR Chron ic: N Practic e ID: 0001 Bill able Time: 01:30:00 PM [facility] 17:23:26 Speciali d medical examinat ion Completed 201101/29/2021 Gynecolog ical Examinati on;Record ed Elsewhere : No Locati on: [facility] So urce: EHR Chron ic: N Practic e ID: 0001 Bill able Time: 10:45:00 AM [facility] 17:23:37 Screenin g for malignan t neoplasm of cervix Completed 201601/29/2021 Encounter for screening for malignant neoplasm of cervix;Re corded Elsewhere : No Locati on: [facility] So urce: EHR Chron ic: N Practic e ID: 0001 Bill able Time: 01:00:00 PM Radha Francis [facility] [place] 17:23:29 Adult health examinat hector Completed 201301/29/2021 ROUTINE MEDICAL EXAM;Keyur rded Elsewhere : No Locati on: [facility] So urce: EHR Chron ic: N Practic e ID: 0001 Bill able Time: 01:30:00 PM Radha Francis [facility] [place] 17:23:18 Body mass index 30+ - obesity 283329955 Completed 201701/29/2021 Body mass index (BMI) 32.0-32.9 , adult;Rec orded Elsewhere : No Locati on: [facility] So urce: EHR Chron ic: N Practic e ID: 0001 Bill able Time: 01:30:00 PM [facility] 17:23:19 Leukocyt osis 861540498 Completed 201101/29/2021 LEUKOCYTO SIS NOS;Recor ded Elsewhere : No Locati on: [facility] So urce: EHR Chron ic: N Practic e ID: 0001 Bill able Time: 10:45:00 AM Radha Francis [facility] [place] 17:23:24 Screenin g for malignan t neoplasm of colon Completed 201001/29/2021 Special screening for malignant neoplasms , colon;Pra ctice ID: 0001 [facility] 17:23:31 Problem Notes None recorded. Procedures Surgical History Date Name Laterality Status Provider Name and Address Organization Details Recorded Time 04/05/19 22 Date of Last Mammogram completed [facility] 02/27/2022 15:43:18 03/24/19 22 Date of Last Colonoscopy completed [facility] 02/28/2022 10:33:19 01/31/20 21 Date of Last Pap Smear completed [facility] 02/27/2022 15:42:44 03/24/19 21 Most Recent Bone Density completed [facility] 02/28/2022 10:33:30 03/24/19 15 Hysteroscopy completed [facility] 01/29/2021 17:27:43 Cryotherapy/Cryocau gisselle completed [facility] 01/29/2021 17:26:47 excision of cyst of ovary completed [facility] 01/29/2021 17:26:56 Cholecystectomy completed [facility] 04/02/2023 12:04:15 Imaging Results None recorded. Procedure Notes None recorded. Medical Equipment None Reported. Allergies Allergen ID Allergen Name Allergen Category Reaction Reaction Severity Criticality Documentation Date Start Date Code Code System Note Provider Name and Address Organization Details Recorded Time 9472 amoxicill in medicatio n Not available Not available Not available 03/10/2020 723 RxNorm Comme nt: [facility]; [facility] 14:14:21 Medications Name Sig Start Date Stop Date Status Note LastModified by Organization Details LastModified Time amoxicill in 500 mg capsule take 1 capsule (500MG) by oral route 3 times every day for 10 days 01/20 completed Prescrib ed Elsewher e: No Locat ion: [facility] odify By: cmedical Encount er DateTime : 01/12/20 13 11:33:45 AM Not Available Not Available Not Available Ceftin 500 mg tablet take 1 tablet (500MG) by oral route every 12 hours 01/23 completed Prescrib ed Elsewher e: No Locat ion: [facility] odify By: cmedical Encount er DateTime : 01/15/20 13 02:20:58 PM Not Available Not Available Not Available Pyridium 200 mg tablet take 1 tablet by oral route 3 times every day after meals 02/01 completed Prescrib ed Elsewher e: No Locat ion: [facility] odify By: amzeynep Nadine ncounter DateTime : 01/11/20 12:00:00 PM Not Available Not Available Not Available Cipro 500 mg tablet take 1 tablet by oral route every 12 hours 02/01 completed Prescrib ed Elsewher e: No Locat ion: [facility] odify By: amkcatrina Coleman ncounter DateTime : 01/11/20 12:00:00 PM Not Available Not Available Not [...] Available Not Available Vitals Date Recorded Body weight Systolic blood pressure Diastolic blood pressure Provider Name and Address Organization Details Last Updated DateTime 04/02/2023 95109.96 g 125 mm[Hg] 85 mm[Hg] Radha Otto [facility] [place] 04/02/2023 12:01:45 Date Recorded Systolic blood pressure Diastolic blood pressure Provider Name and Address Organization Details Last Updated DateTime 01/30/2021 132 mm[Hg] 83 mm[Hg] Kimberley Rodriguez, [facility] [address], [place], [address], [facility] [place] 01/30/2021 10:37:19 Date Recorded Body height Body mass index (BMI) Body weight Provider Name and Address Organization Details Last Updated DateTime 01/30/2021 160.02 cm 33.8 kg/m2 59275.14 g Radha Francis [facility] 01/30/2021 10:08:00 Date Recorded Body height Body mass index (BMI) Body weight Systolic blood pressure Diastolic blood pressure Provider Name and Address Organization Details Last Updated DateTime 02/28/2022 160.02 cm 33.1 kg/m2 84636.77 g 120 mm[Hg] 82 mm[Hg] Gloria Grimes [facility] [place] 10:33:09 Social History Question Answer Notes LastModified by Organizat ion Details LastModified Time Tobacco Smoking Status Never Smoker Melina Jean loreto [facility] 04/02/2023 11:54:54 Do You Have An [...] Or The Highest Degree You Have Received? [id number] Information not available 01/30/2021 Are There Any [...] anxious, or unable to sleep at night)? [id number] Information not available 01/30/2021 Family History Relationship [...] SNOMED-CT Code Diagnosis ICD10 Code Diagnosis Note [id number] Kimberley Rodriguez [facility] [address] [address] 01/30/2021 09:59:15 01/30/2021 11:11:07 Gynecologic examination 25189950 Z01.419 Take Calcium with Vitamin D 12-1500mg daily. Do monthly self breast exams. It is advised to get annual flu shot in the fall and she could obtain at [facility] or [facility] care clinic. If you haven't [...] screen discussedD exa-ordere d Postmenopa usal osteopenia 742880050 M85.80 Family his tory of cancer of colon 188001198 Z80.0 Discussed genetic screenDisc ussed colonoscop yHas never had oneScared of resultsNot having issuesMom & MGM Hx of colon cancerWe reviewed risks/bene fits of this procedure & her health.She will consider referral for a screening colonoscop y [id number] Kimberley Rodriguez , [facility] [address] [address] 02/28/2022 10:26:16 02/28/2022 10:54:35 Gynecologic examination 74003852 Z01.419 Z11.51 Take Calcium with Vitamin D 12-1500mg daily. Do monthly self breast exams. It is advised to get annual flu shot in the fall and she could obtain at [facility] or [facility] take care clinic. If you haven't received the [...] screen discussedD exa-PCPSTD declined Screening mammography 24 476797 Z12.31 [id number] Kimberley Rodriguez , [facility] [address] [address] 04/02/2023 11:52:33 04/02/2023 12:19:26 Gynecologic examination 52333490 Z01.419 Z11.51 Take Calcium with Vitamin D 12-1500mg daily. Do monthly self breast exams. It is advised to get annual flu shot in the fall and she could obtain at [facility] or [facility] care clinic. If you haven't [...] screen discussedD exa-PCPSTD declined Screening mammography 24 159892 Z12.31 Health Concerns Section Related Observation LastModified by Organization Detai ls LastModified Time None Recorded Concern Status LastModified by Organization Details LastModified Time None Recorded Advance Directives Directive N: Payers Encounter Date Sequence Insurance Name Policy Number Policy Woods Covered Member ID Woods Member ID Guarantor Name 01/30/2021 1 [facility] [id number] Anastasia Hoover [id number] Anastasia Hoover 02/28/2022 1 [facility] [id number] Anastasia Hoover [id number] Anastasia Hoover 04/02/2023 1 [facility] [id number] Anastasia Hoover [id number] Anastasia Hoover Notes Date Note Type Note Provider Name and Address Organization Details Recorded Time 01/30/2021 text/html Annual Marine Engineer Post-MenopausalRe ported bypatient.[place] Symptoms:no menopausal symptoms; [...] schedule colonoscopy; needs to schedule bone density CRISTOPHER Lawrence [address], [place], [address], [facility] 01/30/2021 10:45:57 02/28/2022 text/html Annual Marine Engineer Post-MenopausalRe ported bypatient.[place] Symptoms:no menopausal symptoms; [...] to schedule mammogram; history of recent colonoscopy MARIAN Lawrence [address], [place], [address], [facility] 02/28/2022 10:45:44 04/02/2023 text/html Annual Marine Engineer Post-MenopausalRe ported bypatient.[place] Symptoms:no menopausal symptoms; [...] schedule mammogram; history of recent colonoscopy Kimberley Rodriguez, [facility] [address], [place], [address], [facility] 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 Status 01/30/20 21 1 CLOSED Fetus Data First Name Last Name Admitted to NICU Weight (g) Sex Living Outcome Pediatric Complications Fetus ID Race Codes Race Delivery Type [id number] Vaginal Delivery Terry Calculation Initial Terry Date [...] 0 0 Menstrual History Last Menstrual Date Menses Monthly On Bcp Conception Prior Menses Frequency Hcg Plus Date Menarche Onset Age Delivery Information Delivery Date Delivery Type Labor Anesthesia Weeks Gestation Incision Type Labor Labor Length Hrs Delivered By Post Complications Tubal Sterilization Discharge Date Comments 2 Discharge Information Feeding Method Contraceptive Method Maternal HG B and HCT Levels Ob Episode Information Episode Created Date Number of Fetuses Patient Bloodtype Patient rh Status Prepregnancy Weight lbs Domestic Partner Domestic Partner Phone Father Name Hydroelectric Machinery Mechanic Helper Status 01/30/20 21 1 CLOSED Fetus Data First Name Last Name Admitted to NICU Weight (g) Sex Living Outcome Pediatric Complications Fetus ID Race Codes Race Delivery Type 10690 Vaginal Delivery Terry Calculation Initial Terry Date [...] 0 0 Menstrual History Last Menstrual Date Menses Monthly On Bcp Conception Prior Menses Frequency Hcg Plus Date Menarche Onset Age Delivery Information Delivery Date Delivery Type Labor Anesthesia Weeks Gestation Incision Type Labor Labor Length Hrs Delivered By Post Complications Tubal Sterilization Discharge Date Comments 9 Discharge Information Feeding Method Contraceptive Method Maternal HG B and HCT Levels Ob Episode Information Episode Created Date Number of Fetuses Patient Bloodtype Patient rh Status Prepregnancy Weight lbs Domestic Partner Domestic Partner Phone Father Name Hydroelectric Machinery Mechanic Helper Status 01/30/20 21 1 CLOSED Fetus Data First Name Last Name Admitted to NICU Weight (g) Sex Living Outcome Pediatric Complications Fetus ID Race Codes Race Delivery Type [id number] Vaginal Delivery Terry Calculation Initial Terry Date [...] 0 0 Menstrual History Last Menstrual Date Menses Monthly On Bcp Conception Prior Menses Frequency Hcg Plus Date Menarche Onset Age Delivery Information Delivery Date Delivery Type Labor Anesthesia Weeks Gestation Incision Type Labor Labor Length Hrs Delivered By Post Complications Tubal Sterilization Discharge Date Comments 5 Discharge Information Feeding Method Contraceptive Method Maternal HG B and HCT Levels
--- OUTSIDE RECORDS SUMMARY | 2024-08-23 09:36 | XMS_ITS | Clinical Summary ---
Author Organization [facility] Address [address] [place] [address] Care Team Providers Care Process Controls Technician Name Role Phone Sydnee Chavez MD Primary Care Provider [phone] Source Comments [facility],non-owned Affiliates and Associated Physician Practices is amultiple site organization consisting of ambulatory clinics and hospital sitesin [place], [place], [place] and [place]. This disclosure is being madepursuant to the Care Everywhere program and may not contain all information available regarding this patient. Last updated 17.[facility] Allergies Active Allergy Reactions Criticality Noted Date [...] on file Legal Sex Female 9:01 AM CLAIMS ASSOCIATE Gender Identity Not on file Sexual Orientation Not on file Last Filed Vital Signs Vital Sign Reading Time Taken Comments Blood Pressure 126/82 05/01/2018 2:07 PM CLAIMS ASSOCIATE Pulse 84 05/01/2018 2:07 PM CLAIMS ASSOCIATE Temperature 36.7 C (98.1 F) 05/01/2018 2:07 PM CLAIMS ASSOCIATE Respiratory Rate 15 05/01/2018 2:07 PM CLAIMS ASSOCIATE Oxygen Saturation 99% 05/01/2018 2:07 PM CLAIMS ASSOCIATE Inhaled Oxygen Concentration - - Weight 86.2 kg (190 lb) 05/01/2018 2:07 PM CLAIMS ASSOCIATE Height 162.6 cm (5' 4) 05/01/2018 2:07 PM CLAIMS ASSOCIATE Body Mass Index 32.61 05/01/2018 2:07 PM CLAIMS ASSOCIATE Plan of Treatment Health Maintenance Due Date [...] patient's age to complete this topic Insurance Care Teams Process Controls Technician Relationship Specialty Start Date End Date Sydnee Chavez MD PCP - General Family Medicine 05/01/18
[2024-08-23 15:30] LABS: Alanine Aminotransferase 20 U/L (6-35); Albumin Level 4.3 g/dL (3.5-5.1); Alkaline Phosphatase 85 U/L (38-126); Aspartate Amino Transferase 42 U/L (14-36); Bilirubin,Total 0.9 mg/dL (0.2-1.3)
== END 2024-08-23 09:19 | disposition home or self-care (01) ==
LOC: ANHGOSHLAB 09:19
PROVIDERS: PCP Internal Medicine; Visit Provider Nurse Practitioner
DX: R74.8 Abnormal levels of other serum enzymes (principal)
CPT/HCPCS: 36415; 80076

== ENCOUNTER 2024-08-31 10:38 | Outpatient (CLI) | payer MEDICARE, SELFPAY ==
--- NOTE | ~2024-08-31 | DEXA_ITS ---
Bone Density Report Name: MÓNICA EVASN Age: 64 Sex: Female Ethnicity: White Date of : 1960 Indication: postmenopausal; screening for osteoporosis; height loss; Referring Provider: CELENA SANTIAGO Study: Bone densitometry was performed. Exam Date: August 31, 2024 Accession number: [id number] Bone Density: Region BMD T-score Z-score Classification AP Spine(L1-L4) 1.075 0.3 2.1 Normal Femoral Neck (Left) 0.700 -1.3 0.2 Osteopenia Total Hip (Left) 0.918 -0.2 1.1 Normal Femoral Neck (Right) 0.649 -1.8 -0.2 Osteopenia Total Hip (Right) 0.855 -0.7 0.6 Normal Total Hip Mean 0.887 -0.5 0.9 Normal World Health Organization criteria for BMD impression classify patients as: Normal (T-score at or above -1.0), Osteopenia (T-score between -1.0 and -2.5), or Osteoporosis (T-score at or below -2.5). 10-year Fracture Risk(1): Major Osteoporotic Fracture 9.1% Hip Fracture 1.1% Reported Risk Factors: [place] (), Neck BMD=0.649, BMI=34.9 (1) FRAX(R) Version 3.08. Fracture probability calculated for an untreated patient. Fracture probability may be lower if the patient has received treatment. Clinical Information Provided by Patient: Has used the following medications: Vitamin D, Calcium Patient maximum height was 64 Menopause Age: 53 No regular weight bearing exercise Drinks caffeinated beverages Onset of menses at age 12 Number of children 3 Impression: The patient has low bone mass, based on the Right Femoral Neck T-score. The patient has an estimated ten-year risk of hip fracture of 1.1% and an estimated ten-year risk of major fracture of 9.1%, based on the WHO FRAX algorithm. Discussion: BONE DENSITY IS LOW AT ONE OR MORE SKELETAL SITES. This patient's lowest T-score is low at one or more skeletal sites. It meets the World Health Organization's (WHO) criteria for ?low bone mass? (T-score between -1.0 and -2.5). The patient's 10-year risk of fracture as calculated by FRAX is less than the threshold where pharmacological therapy is recommended by the National Osteoporosis Foundation (NOF). However, all treatment decisions require clinical judgment and consideration of individual patient factors, including patient preferences, comorbidities, previous drug use, risk factors not captured in the FRAX model (e.g., frailty, falls, vitamin D deficiency, increased bone turnover, interval significant decline in bone density) and possible under or overestimation of fracture risk by FRAX. The patient should follow a healthful lifestyle (good nutrition with adequate calcium and vitamin D, and appropriate weight-bearing exercise). Follow-Up: Consider repeating this study in 2 to 3 years to reassess this patient's status, or sooner if there is some new clinical indication. Reported by: JAZMIN on 08/31/2024 11:24:00 AM. Reviewed, dictated and finalized at location A.
--- OUTSIDE RECORDS SUMMARY | 2024-08-31 11:51 | XMS_ITS | Data Portability ---
Author Organization [facility] [place] Address [address] [place] [address] Care Team Providers Care Director Experimental Medicine Name Role Phone MEEK WADE Primary Care [...] Imaging MAMMO, screening, bilateral 2023 024 [email or web address] [facility], [address], [place], [address], 4 15:56:06 MAMMO, screening, bilateral 2021 022 MELITON [facility], [address], [place], [address], 3 17:48:32 DEXA, axial skeleton + vertebral fracture assessment 2020 021 [facility], [address], [address] [address], [place], [address], 11:25:18 Medication Orders None recorded. Patient TargetsNo [...] kings: Rian Webster Colle cted: 01/30 1408 SAP ARIBA CONSULTANT Order ing Locat ion: [place] Patho logy [...] as clini deedee warra nted. Not Available [facility] (Lab) [address], [place], [address], 02/06/2021 10:39:07 04/02/19 24 04/02/2023 IMAGE GUIDE D PAP AND HPV REGAR DLESS image guided Pap, HPV regardless of Pap result SEE RESULT S BELOW CASE REPOR T: Cytol ogy Gynec ologi thalia Repor t Case: [id number] Autho ame g Provi kings: Rian Webster Colle cted: 04/02 1445 SAP ARIBA CONSULTANT Order ing Locat ion: [place] Patho logaristides [...] as clini deedee warra nted. Not Available [facility] (Lab) [address], [place], [address], 04/03/2023 22:21:26 04/05/19 22 04/05/2021 MAMMO , [place], bilat eral No observ ation [facility] ed[facility] [address], [place], [address], 04/12/2021 15:55:52 05/13/19 23 05/13/2022 MAMMO , [place], bilat eral No observ ation record ed. [email or web address] [facility] [address], [place], [address], 04/02/2023 12:16:35 Result Notes None recorded. Problems Name Problem SNOMED Code Status Onset Date Resolution Date Notes Provider Name and Address Organization Details Recorded Time Cyst of ovary 08461053 Completed 201401/29/2021 Unspecifi ed ovarian cysts;Pra ctice ID: 0001 Radha dangelo [facility] 17:23:23 Postmeno pausal bleeding 65684189 Completed 201401/29/2021 Postmenop ausal bleeding; Practice ID: 0001 Radha dangelo [facility] 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 17:23:[address] Concept Completed 201601/29/2021 Encntr for general adult medical exam w/o abnormal findings; Practice ID: 0001 Radha Francis [facility] 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 17:23:36 Screenin g for malignan t neoplasm of rectum Completed 201601/29/2021 Encounter for screening for malignant neoplasm of rectum;Pr actice ID: 0001 Radha Francis [facility] 17:23:32 Obesity [id number] Completed 201301/29/2021 Obesity;R ecorded Elsewhere : No Locati on: [facility] So urce: EHR Chron ic: N Practic e ID: 0001 Bill able Time: 01:30:00 PM Radha Francis [facility] 17:23:26 Speciali d medical examinat ion Completed 201101/29/2021 Gynecolog ical Examinati on;Record ed Elsewhere : No Locati on: [facility] So urce: EHR Chron ic: N Practic e ID: 0001 Bill able Time: 10:45:00 AM Radha Francis [facility] 17:23:37 Screenin g for malignan t neoplasm of cervix Completed 201601/29/2021 Encounter for screening for malignant neoplasm of cervix;Re corded Elsewhere : No Locati on: [facility] So urce: EHR Chron ic: N Practic e ID: 0001 Bill able Time: 01:00:00 PM Radha Francis [facility] 17:23:29 Adult health examinat hector Completed 201301/29/2021 ROUTINE MEDICAL EXAM;Keyur rded Elsewhere : No Locati on: [facility] So urce: EHR Chron ic: N Practic e ID: 0001 Bill able Time: 01:30:00 PM Radha Francis [facility] 17:23:18 Body mass index 30+ - obesity [id number] Completed 201701/29/2021 Body mass index (BMI) 32.0-32.9 , adult;Rec orded Elsewhere : No Locati on: [facility] So urce: EHR Chron ic: N Practic e ID: 0001 Bill able Time: 01:30:00 PM Radha Francis [facility] 17:23:19 Leukocyt osis [id number] Completed 201101/29/2021 LEUKOCYTO SIS NOS;Recor ded Elsewhere : No Locati on: [facility] So urce: EHR Chron ic: N Practic e ID: 0001 Bill able Time: 10:45:00 AM Radha Francis [facility] 17:23:24 Screenin g for malignan t neoplasm of colon Completed 201001/29/2021 Special screening for malignant neoplasms , colon;Pra ctice ID: 0001 Radha Francis [facility] 17:23:31 Problem Notes None recorded. Procedures Surgical History Date Name Laterality Status Provider Name and Address Organization Details Recorded Time 04/05/19 22 Date of Last Mammogram completed [facility] 02/27/2022 15:43:18 03/24/19 22 Date of Last Colonoscopy completed [facility] 02/28/2022 10:33:19 01/31/20 21 Date of Last Pap Smear completed [facility] 02/27/2022 15:42:44 03/24/19 21 Most Recent Bone Density completed [facility] 02/28/2022 10:33:30 03/24/19 15 Hysteroscopy completed [facility] 01/29/2021 17:27:43 Cryotherapy/Cryocau gisselle completed [facility] 01/29/2021 17:26:47 excision of cyst of ovary completed [facility] 01/29/2021 17:26:56 Cholecystectomy completed [facility] 04/02/2023 12:04:15 Imaging Results None recorded. Procedure Notes None recorded. Medical Equipment None Reported. Allergies Allergen ID Allergen Name Allergen Category Reaction Reaction Severity Criticality Documentation Date Start Date Code Code System Note Provider Name and Address Organization Details Recorded Time 9472 amoxicill in medicatio n Not available Not available Not available 03/10/2020 723 RxNorm Comme nt: [facility]at [facility]; [facility] 14:14:21 Medications Name Sig Start Date Stop Date Status Note LastModified by Organization Details LastModified Time amoxicill in 500 mg capsule take 1 capsule (500MG) by oral route 3 times every day for 10 days 01/20 completed Prescrib ed Elsewher e: No Locat ion: Eunstefania nadine [facility] odify By: cmedical Encount er DateTime : 01/12/20 13 11:33:45 AM Not Available Not Available Not Available Ceftin 500 mg tablet take 1 tablet (500MG) by oral route every 12 hours 01/23 completed Prescrib ed Elsewher e: No Locat ion: Eunstefania ndaine [facility] odify By: cmedical Encount er DateTime : 01/15/20 13 02:20:58 PM Not Available Not Available Not Available Pyridium 200 mg tablet take 1 tablet by oral route 3 times every day after meals 02/01 completed Prescrib ed Elsewher e: No Locat ion: [facility] odify By: amzeynep Nadine ncounter DateTime : 01/11/20 12:00:00 PM Not Available Not Available Not Available Cipro 500 mg tablet take 1 tablet by oral route every 12 hours 02/01 completed Prescrib ed Elsewher e: No Locat ion: [facility] odify By: amkcatirna [address] ncounter DateTime : 01/11/20 12:00:00 PM [...] Address Organization Details Last Updated DateTime 04/02/2023 33618.96 g 125 mm[Hg] 85 mm[Hg] Radha Otto [facility] 04/02/2023 12:01:45 Date Recorded Systolic blood pressure Diastolic blood pressure Provider Name and Address Organization Details Last Updated DateTime 01/30/2021 132 mm[Hg] 83 mm[Hg] Kimberley Rodriguez, MAN [facility]- [address], [place], [address], [facility] 01/30/2021 10:37:19 Date Recorded Body height Body mass index (BMI) Body weight Provider Name and Address Organization Details Last Updated DateTime 01/30/2021 160.02 cm 33.8 kg/m2 67108.14 g Radha Francis [facility] 01/30/2021 10:08:00 Date Recorded Body height Body mass index (BMI) Body weight Systolic blood pressure Diastolic blood pressure Provider Name and Address Organization Details Last Updated DateTime 02/28/2022 160.02 cm 33.1 kg/m2 04504.77 g 120 mm[Hg] 82 mm[Hg] Gloria Grimes [facility] 10:33:09 Social History Question Answer Notes LastModified by Organizat ion Details LastModified Time Tobacco Smoking Status Never Smoker Melina Jean loreto [facility] 04/02/2023 11:54:54 Do You Have An [...] Or The Highest Degree You Have Received? [id number] Information not available 01/30/2021 Are There Any [...] anxious, or unable to sleep at night)? [id number] Information not available 01/30/2021 Family History Relationship [...] (Food, seasonal, environmental ) N Other N Breast Cancer N Drug/Latex Allergies/Reactions N Blood Transfusion N Dermatologic Disorders N Lung Disease N Defects or Inherited Disease N Breast Problem N Gestational Diabetes N Hematologic disorders N Anesthesia Complications N History of STI N Deep Vein Thrombosis N Polycystic ovary syndrome N Anxiety Disorder N Autoimmune disease N Arthritis N Infertility N Polyps N Acid Reflux (GERD) N History of abnormal pap N Cancer N Stroke N Varicosities N Neurologic/Epilepsy N Endometriosis N High Cholesterol N Headaches N Fibromyalgia N Kidney Disease N Heart Problems N Kidney or Bladder Problems N Thyroid Problems N GI Problems N Eating Disorder [...] SNOMED-CT Code Diagnosis ICD10 Code Diagnosis Note [id number] Kimberley Rodriguez [facility] [address] [address] 01/30/2021 09:59:15 01/30/2021 11:11:07 Gynecologic examination [id number] Z01.419 Take Calcium with Vitamin D 12-1500mg daily. Do monthly self breast exams. It is advised to get annual flu shot in the fall and she could obtain at [facility] or [facility] care clinic. If you haven't [...] screen discussedD exa-ordere d Postmenopa usal osteopenia [id number] M85.80 Family his tory of cancer of colon 623431532 Z80.0 Discussed genetic screenDisc ussed colonoscop yHas never had oneScared of resultsNot having issuesMom & MGM Hx of colon cancerWe reviewed risks/bene fits of this procedure & her health.She will consider referral for a screening colonoscop y [id number] Kimberley Rodriguez , MAN [facility] [address] [address] 02/28/2022 10:26:16 02/28/2022 10:54:35 Gynecologic examination 79937983 Z01.419 Z11.51 Take Calcium with Vitamin D 12-1500mg daily. Do monthly self breast exams. It is advised to get annual flu shot in the fall and she could obtain at [facility] or [facility] take care clinic. If you haven't received [...] screen discussedD exa-PCPSTD declined Screening mammography 24 076440 Z12.31 [id number] Kimberley Rodriguez , MAN [facility] [address] [address] 04/02/2023 11:52:33 04/02/2023 12:19:26 Gynecologic examination 37084050 Z01.419 Z11.51 Take Calcium with Vitamin D 12-1500mg daily. Do monthly self breast exams. It is advised to get annual flu shot in the fall and she could obtain at [facility] or [facility] care clinic. If you haven't [...] screen discussedD exa-PCPSTD declined Screening mammography 24 960914 Z12.31 Health Concerns Section Related Observation LastModified by Organization Detai ls LastModified Time None Recorded Concern Status LastModified by Organization Details LastModified Time None Recorded Advance Directives Directive N: Payers Encounter Date Sequence Insurance Name Policy Number Policy Woods Covered Member ID Woods Member ID Guarantor Name 01/30/2021 1 [facility] [id number] Anastasia Hoover [id number] Anastasia Hoover 02/28/2022 1 [facility] [id number] Anastasia Hoover [id number] Anastasia Hoover 04/02/2023 1 [facility] [id number] Anastasia Hoover [id number] Anastasia Hoover Notes Date Note Type Note Provider Name and Address Organization Details Recorded Time 01/30/2021 text/html Annual Cut Off Man Post-MenopausalRe ported bypatient.[place] Symptoms:no menopausal symptoms; [...] density CRISTOPHER Lawrence [address], [place], [address], [facility] 01/30/2021 10:45:57 02/28/2022 text/html Annual Cut Off Man Post-MenopausalRe ported bypatient.[place] Symptoms:no menopausal symptoms; [...] colonoscopy MARIAN Lawrence [address], [place], [address], [facility] 02/28/2022 10:45:44 04/02/2023 text/html Annual Cut Off Man Post-MenopausalRe ported bypatient.[place] Symptoms:no menopausal symptoms; [...] mammogram; history of recent colonoscopy Kimberley Rodriguez, MAN [facility]- [address], [place], [address], [facility] 04/02/2023 12:18:01 OBGyn Episode Ob Episode Information Episode Created Date Number of Fetuses Patient Bloodtype Patient rh Status Prepregnancy Weight lbs Domestic Partner Domestic Partner Phone Father Name Client Professional Status 01/30/20 21 1 CLOSED Fetus Data First Name Last Name Admitted to NICU Weight (g) Sex Living Outcome Pediatric Complications Fetus ID Race Codes Race Delivery Type 75688 Vaginal Delivery Terry Calculation Initial Terry Date [...] Domestic Partner Domestic Partner Phone Father Name Client Professional Status 01/30/20 21 1 CLOSED Fetus Data First Name Last Name Admitted to NICU Weight (g) Sex Living Outcome Pediatric Complications Fetus ID Race Codes Race Delivery Type 80413 Vaginal Delivery Terry Calculation Initial Terry Date [...] Domestic Partner Domestic Partner Phone Father Name Client Professional Status 01/30/20 21 1 CLOSED Fetus Data First Name Last Name Admitted to NICU Weight (g) Sex Living Outcome Pediatric Complications Fetus ID Race Codes Race Delivery Type 15288 Vaginal Delivery Terry Calculation Initial Terry Date [...]
--- OUTSIDE RECORDS SUMMARY | 2024-08-31 11:51 | XMS_ITS | Clinical Summary ---
Author Organization [facility] Address [address] [place] [address] Care Team Providers Care Economic Specialist Name Role Phone Sydnee Chavez MD Primary Care Provider [phone] Source Comments [facility],non-owned Affiliates and Associated Physician Practices is amultiple site organization consisting of ambulatory clinics and hospital sitesin [place], [place], [place] and [place]. This disclosure is being madepursuant to the Care Everywhere program and may not contain all information available regarding this patient. Last updated 17.[facility] Allergies Active Allergy Reactions Criticality Noted Date [...] on file Legal Sex Female 9:01 AM DRUG ENFORCEMENT AGENT Gender Identity Not on file Sexual Orientation Not on file Last Filed Vital Signs Vital Sign Reading Time Taken Comments Blood Pressure 126/82 05/01/2018 2:07 PM DRUG ENFORCEMENT AGENT Pulse 84 05/01/2018 2:07 PM DRUG ENFORCEMENT AGENT Temperature 36.7 C (98.1 F) 05/01/2018 2:07 PM DRUG ENFORCEMENT AGENT Respiratory Rate 15 05/01/2018 2:07 PM DRUG ENFORCEMENT AGENT Oxygen Saturation 99% 05/01/2018 2:07 PM DRUG ENFORCEMENT AGENT Inhaled Oxygen Concentration - - Weight 86.2 kg (190 lb) 05/01/2018 2:07 PM DRUG ENFORCEMENT AGENT Height 162.6 cm (5' 4) 05/01/2018 2:07 PM DRUG ENFORCEMENT AGENT Body Mass Index 32.61 05/01/2018 2:07 PM DRUG ENFORCEMENT AGENT Plan of Treatment Health Maintenance Due Date [...] to complete this topic Insurance Care Teams Economic Specialist Relationship Specialty Start Date End Date Sydnee Chavez MD PCP - General Family Medicine 05/01/18
== END 2024-08-31 10:39 | disposition home or self-care (01) ==
PROVIDERS: PCP Internal Medicine; Visit Provider Nurse Practitioner
DX: N95.9 Unspecified menopausal and perimenopausal disorder (principal); M85.852 Other specified disorders of bone density and structure, left thigh; M85.851 Other specified disorders of bone density and structure, right thigh
CPT/HCPCS: 77080

== ENCOUNTER 2024-12-21 08:37 | Emergency (ER) | payer MEDICARE, SELFPAY ==
--- NOTE | 2024-12-21 08:46 | ED.SKABFB ---
HPI - Skin/Abscess/Foreign Bdy General Chief complaint: Skin/Abscess/Foreign Body Stated complaint: possible spider bite Time Seen by Provider: 12/21/24 09:00 Source: patient and RN notes reviewed Mode of arrival: ambulatory Limitations: dementia History of Present Illness HPI narrative: 64-year-old female presents with concern for a rash on her low back. She reports she noticed a cluster of blisters a few days ago, knee become itchy, tender in slightly larger. She has put Neosporin on it. She denies general malaise, fever, aches, chills, sweats. Denies drainage. Denies other area of rash. complaint: rash Related Data Allergies Allergy/AdvReac Type Severity Reaction Status Date / Time amoxicillin Allergy Unknown SEVERE Verified 12/21/24 09:01 NAUSEA AND VOMITING Review of Systems Review of Systems: CONSTITUTIONAL: Denies malaise, chills, sweats, or fever. EYES: Denies redness, or discharge. ENT: Denies rhinorrhea, congestion, swollen lips, swollen tongue CARDIOVASCULAR: Denies chest pain, palpitations, or edema. RESPIRATORY: Denies cough or dyspnea. GASTROINTESTINAL: Denies abdominal pain, nausea, vomiting SKIN: Reports itchy tender rash on her low back. Denies purulent drainage, vesicles, bullae, numbness, pain beyond proportion MUSCULOSKELETAL: Denies joint pain or myalgia. NEUROLOGIC: Denies headache. All systems reviewed & are unremarkable except as noted in HPI and below PMFSH Past Medical History Medical History (Updated 12/21/24 @ 09:09 by Maritza Barahona NP) Family history of colon cancer Chronic pyelonephritis Osteosclerosis Kidney cysts Surgical History Surgical History History of cholecystectomy Family History Family History Mother Family history of gallbladder disease Carcinoma of colon Hypertension Father Acute myocardial infarction Malignant neoplasm of prostate Grandparent Cancer Social History Social History Smoking status: Never smoker Alcohol intake: current Substance use: never Substance use type: does not use Lack of Transportation: No Lack of Food: Never True Current Housing: I Have Housing Concerned About Future Housing: No Difficulty Paying Gas/Electric Bills: No Difficulty Paying for Meds: No Currently Unemployed: No Education: High School Diploma/GED Difficulty w/ Childcare or Family Care: No Living arrangements: with family Occupation/Education: retired Gender identity (if verbalized by the patient): Female Spiritual care concerns: No Agree to blood products: Yes Comments At time of signature, agree with nursing past medical, surgical, social and family history. There is no relevant family history pertinent to the presenting complaint Exam Narrative: GENERAL: Well-appearing, well-nourished, and in no acute distress. HEAD: Normocephalic, atraumatic. EYES: PERRLA, conjunctivae clear ENT: Mucous membranes moist. NECK: Supple. No lymphadenopathy CHEST: Clear to auscultation. No respiratory distress. HEART: Regular rate and rhythm. SKIN: Warm, dry. Cluster of erythematous raised scabbed areas noted to the mid low back with surrounding erythema, induration, slightly tender. The entire area is approximately 3 cm diameter. No vesicles, bullae, necrosis, ecchymosis, crepitus noted. NEURO: Alert and oriented x3. PSYCH: Normal mood and affect Course Course Emergency Course: Patient is aware of diagnosis, understands and agrees to treatment plan. Anticipatory guidance given. Patient agrees to follow-up as directed and is aware of reasons to seek care at the emergency department. Portions of this record may have been created with voice recognition software Level of Care: Express Care Visit Vital Signs Vital signs: Reviewed. MDM - Skin/Abscess/Foreign Bdy MDM Narrative Medical decision making narrative: I evaluated this in the express care. History is obtained from patient who is an independent historian and physical exam was performed.? Available medical records were reviewed. ? Exam findings and relevant testing show no acute concerns or changes; patient is non-toxic appearing and is in no distress. Does not appear at this time to be erythema multiforme, bullous, SJS, TEN; no evidence at this time to suggest RMSF, NSTI, endocarditis or Lyme disease; patient looks well, nontoxic and is tolerating oral intake; no neurologic signs or symptoms; no headache, photophobia or neck pain; afebrile.? Patient does not have history of of penetrating trauma, laceration, blunt trauma, recent surgery, immunosuppression, malignancy, obesity, alcoholism, corticosteroid use.? Discussed the importance of follow-up, patient agrees; question, cellulitis versus necrotizing soft tissue infection versus abscess.?? Patient is appropriate for outpatient treatment and follow-up. Critical Care Time Critical Care Time Critical Care Time: No Discharge Plan Discharge Clinical Impression: Bacterial infection of skin Patient Disposition: Home Condition: Stable Instructions: Antibiotic Form Additional Instructions: Please follow up with your Primary Care Doctor within 48-72 hours - call for an appointment. Apply hydrocortisone cream as needed for itching. Take Motrin 600mg every 8 hours with food for pain. Please take Antibiotics as directed. If you experience any worsening redness, swelling, streaking (red lines), fever or chills please go to the ER Patient Language: Hungarian Prescriptions: New sulfamethoxazole-trimethoprim 800-160 mg tablet 1 tablet PO Q12H 7 Days Qty: 14 0RF No Action cholecalciferol (vitamin D3) 1,250 mcg (50,000 unit) capsule 1,250 mcg PO WEEKLY Qty: 8 0RF Follow-up/Referrals: Jerald Ferreira DO [Primary Care Provider, Internal Medicine] Time of Disposition: 09:10
[2024-12-21 08:47] VITALS: BP 160/80; PULSE 85; RESP 16; TEMP 36.3; O2SAT 98
== END 2024-12-21 09:12 | disposition home or self-care (01) ==
PROVIDERS: Emergency Provider Nurse Practitioner; PCP Internal Medicine
DX: L08.9 Local infection of the skin and subcutaneous tissue, unspecified (principal); B96.89 Other specified bacterial agents as the cause of diseases classified elsewhere; Q78.2 Osteopetrosis
CPT/HCPCS: 99213; G0463